=== PATIENT | male | born 1945 | race Caucasian/White ===

== ENCOUNTER 2017-02-22 15:09 | Emergency (ER) | payer OTHER ==
[2017-02-22 15:28] VITALS: BP 124/76; TEMP 99.4; BMI 31.3
[2017-02-22] MEDS ORDERED: SODIUM CHLORIDE 1,000 ML IV SCH (16:45)
[2017-02-22] MEDS ORDERED: CEFTRIAXONE 1 GM in DEXTROSE 5%-WATER - 100 ML IVPB SCH (16:45)
[2017-02-22] MEDS ORDERED: cefTRIAXone 1 GM/50 ML BAG (PRE-DOCKED) IVPB SCH (16:45)
[2017-02-22 16:46] LABS: URINE APPEARANCE CLEAR; URINE BILIRUBIN NEGATIVE (NEGATIVE); URINE BLOOD 1+ (NEGATIVE); URINE COLOR YELLOW; URINE GLUCOSE (UA) NEGATIVE (NEGATIVE); URINE KETONE TRACE (NEGATIVE); URINE LEUK ESTERASE NEGATIVE (NEGATIVE); URINE NITRITE NEGATIVE (NEGATIVE); URINE UROBILINOGEN NEGATIVE mg/dL (0.2-1.0)
[2017-02-22 16:49] LABS: BASOPHIL 0.4 % (0-2.0); EOSINOPHIL 0.2 % (0-4.5); MCH 30.1 pg (25.7-33.7); MCHC 33.5 g/dl (32.0-35.9); MEAN CELL VOLUME 89.8 fl (80-96); MEAN PLT VOLUME 8.3 fl (7.5-11.1); NEUTROPHILS 86.1 % (42.8-82.8); PLATELET COUNT 225 K/MM3 (134-434); RDW 13.9 % (11.9-15.9); WHITE BLOOD COUNT 10.7 K/mm3 (4.0-10.0)
--- NOTE | 2017-02-22 16:49 | CON.GI ---
Consult Consult Specialty:: gastroenterology - History of Present Illness History of Present Illness: 71 y/o male with PMH of HTN, prostatitis was dooing well until this morning when he developed watery diarrhea, non-bloody associated with delirium, abdominal pain and fever. He continious to be weak. There was no recent travel history and no recent antibiotic use. - Past Medical History [employer]: No: CVA Cardio/Vascular: Yes: HTN. No: CHF - Past Surgical History Past Surgical History: Yes: None - Alcohol/Substance Use Hx Alcohol Use: No - Smoking History Smoking history: Never smoked Have you smoked in the past 12 months: No Aproximately how many cigarettes per day: 0 Home Medications - Allergies Allergies/Adverse Reactions: Allergies Allergy/AdvReac Type Severity Reaction Status Date / Time No Known Allergies Allergy Verified 02/22/17 15:23 - Home Medications Home Medications: Ambulatory Orders Glyburide/Metformin HCl [Glyburide-Metformin 2.5-500 mg] 1 each PO BID 10/08/12 Quinapril HCl [Accupril] 10 mg PO DAILY 10/08/12 Simvastatin [Zocor] 20 mg PO HS 10/08/12 Ibuprofen [Motrin -] 800 mg PO TID #30 tablet 10/28/13 Review of Systems - Review of Systems Constitutional: reports: Fever Eyes: reports: Blind Spots HENT: reports: Difficult Swallowing Neck: reports: Decreased ROM Cardiovascular: reports: Chest Pain Gastrointestinal: reports: Diarrhea. denies: Abdominal Pain, Bloating, Constipation, Dysphagia, Melena, Nausea, Rectal Bleeding Physical Exam-GI Vital Signs: Vital Signs Temperature 99.4 F 02/22/17 15:23 Pulse Rate 118 H 02/22/17 15:23 Respiratory Rate 19 02/22/17 15:23 Blood Pressure 124/76 02/22/17 15:23 O2 Sat by Pulse Oximetry (%) 96 02/22/17 15:50 Constitutional: Yes: Well Nourished Eyes: Yes: Conjunctiva Clear HENT: Yes: Atraumatic Neck: Yes: Trachea Midline Cardiovascular: Yes: Regular Rate and Rhythm Respiratory: Yes: CTA Bilaterally ...Palpate: Yes: Soft. No: Firm/Rigid, Guarding, Hepatomegaly, Mass, Pulsatile Mass, Splenomegaly, Tenderness, Tenderness, Epigastium Problem List - Problems (1) Infectious diarrhea Assessment/Plan: R> IV ceftriaxone and IV flagyl IV hydration stool culture and sensitivity stool c diff Code(s): A09 - INFECTIOUS GASTROENTERITIS AND COLITIS, UNSPECIFIED
[2017-02-22] MEDS ORDERED: CEFTRIAXONE 50 ML ONE (16:51)
[2017-02-22] MEDS ORDERED: METRONIDAZOLE 500 MG PREMIXED 100 ML IVPB ONE (16:52)
[2017-02-22 17:05] LABS: URINE PROTEIN 2+ (NEGATIVE)
[2017-02-22 17:06] LABS: INR 0.99 (0.82-1.09); PROTHROMBIN TIME (PATIENT) 10.9 SEC (9.98-11.88)
[2017-02-22 17:09] LABS: ACTIVATED PTT 32.5 SECONDS (26.9-34.4)
[2017-02-22 17:12] LABS: VENOUS PH 7.41 (7.32-7.42)
[2017-02-22 17:13] LABS: VENOUS BLOOD GAS HCO3 22.6 meq/L (19-25)
[2017-02-22 17:16] LABS: ALBUMIN 4.1 g/dl (3.4-5.0); ANION GAP 9 (8-16); BILIRUBIN,TOTAL 0.7 mg/dL (0.2-1.0); CO2 23 mmol/L (21-32); CREATININE 0.9 mg/dL (0.7-1.3); GLUCOSE,RANDOM 172 mg/dL (74-106); SGOT/AST 16 U/L (15-37); SGPT/ALT 22 U/L (12-78); TOT PROT 7.8 g/dl (6.4-8.2)
[2017-02-22 17:18] LABS: ALK PHOS 79 U/L (45-117); TROPONIN I < 0.02 ng/ml (0.00-0.05)
[2017-02-22 17:26] LABS: URINE MUCUS MODERATE; URINE RBC 3 /hpf (0-3); URINE WBC <1 /hpf (3-5)
--- NOTE | 2017-02-22 17:26 | PDOC ---
History of Present Illness - General History Source: Patient Exam Limitations: No Limitations - History of Present Illness Initial Comments: 02/22/17 17:27 The patient is a 71-year-old male, with a significant past medical history of diabetes, HTN, hyperlipidemia, and enlarged prostate, who presents to the ED with chest pain, abdominal pain, subjective fever, productive cough (yellow sputum for a few days), body aches, and diarrhea. Pt woke up this morning at 5 am with abdominal pain. Soon after pt developed diarrhea. Since this morning patient has gone 3-4x. Pt has taken tylenol and pepto bismol to help alleviate his symptoms. Pt states that his chest pain radiates to his arms. He does report experiencing numbness in his arms as well. He reports headache. He denies any nausea or vomiting. He denies any recent travel or sick contacts. Social Hx: He denies tobacco, alcohol, or drug use. Allergies: None <Jacqueline Smallwood - Last Filed: 02/22/17 17:27> <Hernan Will - Last Filed: 02/23/17 10:23> - General Chief Complaint: Chest Pain Stated Complaint: FEVER, LETHARGIC Time Seen by Provider: 02/22/17 15:37 Past History <Jacqueline Smallwood - Last Filed: 02/22/17 17:27> - Past Medical History Anemia: No Asthma: No Cancer: No Cardiac Disorders: No CVA: No COPD: No CHF: No Dementia: No Diabetes: Yes GI Disorders: No Disorders: Yes (prostate hypertrophy) HTN: Yes Hypercholesterolemia: Yes Liver Disease: No Seizures: No Thyroid Disease: No - Surgical History Orthopedic Surgery: Yes (r thr(2000)) - Psycho/Social/Smoking Cessation Hx Suicidal Ideation: No Smoking Status: No Smoking History: Never smoked Have you smoked in the past 12 months: No Number of Cigarettes Smoked Daily: 0 Hx Alcohol Use: No Drug/Substance Use Hx: No Hx Substance Use Treatment: No <Hernan Will - Last Filed: 02/23/17 10:23> - Past Medical History Allergies/Adverse Reactions: Allergies Allergy/AdvReac Type Severity Reaction Status Date / Time No Known Allergies Allergy Verified 02/22/17 15:23 Home Medications: Ambulatory Orders Glyburide/Metformin HCl [Glyburide-Metformin 2.5-500 mg] 1 each PO BID 10/08/12 Simvastatin [Zocor] 20 mg PO HS 10/08/12 Insulin Lispro [Humalog] 0 unit SQ PRN PRN 02/22/17 Levocetirizine Dihydrochloride [Xyzal] 5 mg PO DAILY 02/22/17 Lubiprostone [Amitiza] 8 mcg PO DAILY 02/22/17 Pantoprazole Sodium [Protonix] 40 mg PO DAILY 02/22/17 Tamsulosin HCl [Flomax] 0.4 mg PO HS 02/22/17 Valsartan 80 mg PO DAILY 02/22/17 Review of Systems - Review of Systems Able to Perform ROS?: Yes Comments:: 02/22/17 17:27 GENERAL/CONSTITUTIONAL: +fever. No chills. No weakness. HEAD, EYES, EARS, NOSE AND THROAT: No change in vision. No ear pain or discharge. No sore throat. CARDIOVASCULAR: No chest pain or shortness of breath. RESPIRATORY: +cough No wheezing, or hemoptysis. SKIN: No rash GASTROINTESTINAL: +Abdominal pain, diarrhea. No nausea, vomiting, or constipation. GENITOURINARY: No dysuria, frequency, or change in urination. MUSCULOSKELETAL: No joint or muscle swelling or pain. No neck or back pain. NEUROLOGIC:+Headache. No vertigo, loss of consciousness, or change in strength/ sensation. ENDOCRINE: No increased thirst. No abnormal weight change. HEMATOLOGIC/LYMPHATIC: No anemia, easy bleeding, or history of blood clots. ALLERGIC/IMMUNOLOGIC: No hives or skin allergy. <Jacqueline Smallwood - Last Filed: 02/22/17 17:27> *Physical Exam - Vital Signs Last Vital Signs Temp Pulse Resp BP Pulse Ox 99.4 F 118 H 19 124/76 96 02/22/17 15:23 02/22/17 15:23 02/22/17 15:23 02/22/17 15:23 02/22/17 15:50 - Physical Exam Comments: 02/22/17 17:29 GENERAL: Awake, alert, and fully oriented, in no acute distress HEAD: No signs of trauma ENT: Auricles normal inspection, hearing grossly normal, nares patent, oropharynx clear EYES: PERRLA, EOMI, sclera anicteric, conjunctiva clear without exudates. Moist mucosa. NECK: Normal ROM, supple, no lymphadenopathy, JVD, or masses LUNGS: Breath sounds equal, clear to auscultation bilaterally. No wheezes, and no crackles HEART: Regular rate and rhythm, normal S1 and S2, no murmurs, rubs or gallops ABDOMEN: Soft, nontender. No guarding, no rebound. No masses. +Positive bowel sounds with slight distension. EXTREMITIES: Normal range of motion, no edema. No clubbing or cyanosis. No cords, erythema, or tenderness NEUROLOGICAL: Cranial nerves II through XII grossly intact. Normal speech. SKIN: Warm, Dry, normal turgor, no rashes or lesions noted <Jacqueline Smallwood - Last Filed: 02/22/17 17:27> - Vital Signs Last Vital Signs Temp Pulse Resp BP Pulse Ox 99.4 F 118 H 19 124/76 96 02/22/17 15:23 02/22/17 15:23 02/22/17 15:23 02/22/17 15:23 02/22/17 15:50 <Hernan Will - Last Filed: 02/23/17 10:23> ED Treatment Course - LABORATORY CBC & Chemistry Diagram: 02/22/17 16:43 02/22/17 16:43 - ADDITIONAL ORDERS Additional order review: Laboratory Results 02/22/17 02/22/17 02/22/17 16:43 16:43 16:43 INR 0.99 PTT (Actin FS) 32.5 VBG pH 7.41 POC VBG pCO2 36.4 L POC VBG pO2 60.0 H Mixed VBG HCO3 22.6 Urine Color Urine Appearance Urine pH Urine Protein Urine Glucose (UA) Urine Ketones Urine Blood Urine Nitrite Urine Bilirubin Urine Urobilinogen Ur Leukocyte Esterase Blood Type O POSITIVE 02/22/17 16:20 INR PTT (Actin FS) VBG pH POC VBG pCO2 POC VBG pO2 Mixed VBG HCO3 Urine Color Yellow Urine Appearance Clear Urine pH 5.0 Urine Protein 2+ H Urine Glucose (UA) Negative Urine Ketones Trace H Urine Blood 1+ H Urine Nitrite Negative Urine Bilirubin Negative Urine Urobilinogen Negative Ur Leukocyte Esterase Negative Blood Type 02/22/17 16:43 RBC 5.46 MCV 89.8 MCHC 33.5 RDW 13.9 MPV 8.3 Neutrophils % 86.1 H Lymphocytes % 5.9 L Monocytes % 7.4 Eosinophils % 0.2 Basophils % 0.4 <Jacqueline Smallwood - Last Filed: 02/22/17 17:27> - LABORATORY CBC & Chemistry Diagram: 02/22/17 16:43 02/22/17 16:43 - ADDITIONAL ORDERS Additional order review: Laboratory Results 02/22/17 02/22/17 02/22/17 16:43 16:43 16:43 INR 0.99 PTT (Actin FS) 32.5 VBG pH 7.41 POC VBG pCO2 36.4 L POC VBG pO2 60.0 H Mixed VBG HCO3 22.6 Urine Color Urine Appearance Urine pH Urine Protein Urine Glucose (UA) Urine Ketones Urine Blood Urine Nitrite Urine Bilirubin Urine Urobilinogen Ur Leukocyte Esterase Blood Type O POSITIVE 02/22/17 16:20 INR PTT (Actin FS) VBG pH POC VBG pCO2 POC VBG pO2 Mixed VBG HCO3 Urine Color Yellow Urine Appearance Clear Urine pH 5.0 Urine Protein 2+ H Urine Glucose (UA) Negative Urine Ketones Trace H Urine Blood 1+ H Urine Nitrite Negative Urine Bilirubin Negative Urine Urobilinogen Negative Ur Leukocyte Esterase Negative Blood Type 02/22/17 16:43 RBC 5.46 MCV 89.8 MCHC 33.5 RDW 13.9 MPV 8.3 Neutrophils % 86.1 H Lymphocytes % 5.9 L Monocytes % 7.4 Eosinophils % 0.2 Basophils % 0.4 - RADIOLOGY Radiology Studies Ordered: Category Date Time Status CHEST X-RAY PORTABLE* [RAD] Stat Radiology 02/22/17 15:53 Taken <Hernan Will - Last Filed: 02/23/17 10:23> *DC/Admit/Observation/Transfer - Attestations Scribe Attestion: 02/22/17 17:30 Documentation prepared by Jacqueline Smallwood, acting as medical chemist for Hernan Will MD. <Jacqueline Smallwood - Last Filed: 02/22/17 17:27> - Attestations Physician Attestion: 02/22/17 17:26 I, Dr. Hernan Will, attest that this document has been prepared under my direction and personally reviewed by me in its entirety. I further attest, that it accurately reflects all work, treatment, procedures and medical decision -making performed by me. <Hernan Will - Last Filed: 02/23/17 10:23> Diagnosis at time of Disposition: Ileus - Discharge Dispostion Disposition: HOME Condition at time of disposition: Stable - Referrals Referrals: Hang Mckenzie MD [Primary Care Provider] - - Patient Instructions Printed Discharge Instructions: DI for Ileus Additional Instructions: soft diet until you can tolerate more. Follow up with your doctor as soon as possible.
[2017-02-22] MEDS ORDERED: METRONIDAZOLE 500 MG PREMIXED 100 ML IVPB SCH (18:00)
[2017-02-22 18:05] VITALS: PULSE 87
[2017-02-22] MEDS ORDERED: SODIUM CHLORIDE 500 ML IV STA (18:36)
--- NOTE | 2017-02-22 22:47 | PDOC ---
*Physical Exam - Vital Signs Last Vital Signs Temp Pulse Resp BP Pulse Ox 99.4 F 87 16 124/76 98 02/22/17 15:23 02/22/17 18:04 02/22/17 18:04 02/22/17 15:23 02/22/17 18:04 <Felix Braxton - Last Filed: 02/22/17 22:47> - Vital Signs Last Vital Signs Temp Pulse Resp BP Pulse Ox 99.4 F 87 16 124/76 98 02/22/17 15:23 02/22/17 18:04 02/22/17 18:04 02/22/17 15:23 02/22/17 18:04 <Cummings,Andrys - Last Filed: 02/23/17 04:29> Heart Score/ECG Review #1 02/23/17 04:28 Vent. rate 112 bpm FL interval 164 ms QRS duration 78 ms Sinus tachycardia <Cummings,Andrys - Last Filed: 02/23/17 04:29> ED Treatment Course - LABORATORY CBC & Chemistry Diagram: 02/22/17 16:43 02/22/17 16:43 - ADDITIONAL ORDERS Additional order review: Laboratory Results 02/22/17 02/22/17 02/22/17 16:43 16:43 16:43 INR PTT (Actin FS) VBG pH POC VBG pCO2 POC VBG pO2 Mixed VBG HCO3 Sodium Potassium Chloride Carbon Dioxide Anion Gap BUN Creatinine Creat Clearance w eGFR Random Glucose Lactic Acid 1.5 Calcium Total Bilirubin AST ALT Alkaline Phosphatase Creatine Kinase CK-MB (CK-2) CK-MB (CK-2) Rel Index Cancelled Troponin I Total Protein Albumin Urine Color Urine Appearance Urine pH Ur Specific [place] Urine Protein Urine Glucose (UA) Urine Ketones Urine Blood Urine Nitrite Urine Bilirubin Urine Urobilinogen Ur Leukocyte Esterase Urine RBC Urine WBC Ur Epithelial Cells Urine Mucus Blood Type O POSITIVE Antibody Screen Negative 02/22/17 02/22/17 02/22/17 16:43 16:43 16:43 INR 0.99 PTT (Actin FS) 32.5 VBG pH 7.41 POC VBG pCO2 36.4 L POC VBG pO2 60.0 H Mixed VBG HCO3 22.6 Sodium 133 L Potassium 4.3 Chloride 101 Carbon Dioxide 23 D Anion Gap 9 BUN 18 Creatinine 0.9 D Creat Clearance w eGFR > 60 Random Glucose 172 H Lactic Acid Calcium 9.0 Total Bilirubin 0.7 AST 16 ALT 22 D Alkaline Phosphatase 79 Creatine Kinase 362 H CK-MB (CK-2) 1.940 CK-MB (CK-2) Rel Index Troponin I < 0.02 Total Protein 7.8 Albumin 4.1 Urine Color Urine Appearance Urine pH Ur Specific [place] Urine Protein Urine Glucose (UA) Urine Ketones Urine Blood Urine Nitrite Urine Bilirubin Urine Urobilinogen Ur Leukocyte Esterase Urine RBC Urine WBC Ur Epithelial Cells Urine Mucus Blood Type Antibody Screen 02/22/17 16:20 INR PTT (Actin FS) VBG pH POC VBG pCO2 POC VBG pO2 Mixed VBG HCO3 Sodium Potassium Chloride Carbon Dioxide Anion Gap BUN Creatinine Creat Clearance w eGFR Random Glucose Lactic Acid Calcium Total Bilirubin AST ALT Alkaline Phosphatase Creatine Kinase CK-MB (CK-2) CK-MB (CK-2) Rel Index Troponin I Total Protein Albumin Urine Color Yellow Urine Appearance Clear Urine pH 5.0 Ur Specific [place] >= 1.030 H Urine Protein 2+ H Urine Glucose (UA) Negative Urine Ketones Trace H Urine Blood 1+ H Urine Nitrite Negative Urine Bilirubin Negative Urine Urobilinogen Negative Ur Leukocyte Esterase Negative Urine RBC 3 Urine WBC <1 Ur Epithelial Cells Rare Urine Mucus Moderate Blood Type Antibody Screen 02/22/17 16:43 RBC 5.46 MCV 89.8 MCHC 33.5 RDW 13.9 MPV 8.3 Neutrophils % 86.1 H Lymphocytes % 5.9 L Monocytes % 7.4 Eosinophils % 0.2 Basophils % 0.4 - RADIOLOGY Radiology Studies Ordered: Category Date Time Status ABDOMEN & PELVIS CT W/O CONTR [CT] Stat CT Scan 02/22/17 20:50 Completed - Medications Given in the ED: ED Medications Discontinued Medications Generic Name Dose Route Start Last Admin Trade Name Freq PRN Reason Stop Dose Admin Sodium Chloride 500 mls @ 500 mls/hr 02/22/17 18:36 02/22/17 19:27 Normal Saline - IV 02/22/17 19:35 500 mls/hr ASDIR STA Administration <Felix Braxton - Last Filed: 02/22/17 22:47> - LABORATORY CBC & Chemistry Diagram: 02/22/17 16:43 02/22/17 16:43 - ADDITIONAL ORDERS Additional order review: Laboratory Results 02/22/17 02/22/17 02/22/17 16:43 16:43 16:43 INR PTT (Actin FS) VBG pH POC VBG pCO2 POC VBG pO2 Mixed VBG HCO3 Sodium Potassium Chloride Carbon Dioxide Anion Gap BUN Creatinine Creat Clearance w eGFR Random Glucose Lactic Acid 1.5 Calcium Total Bilirubin AST ALT Alkaline Phosphatase Creatine Kinase CK-MB (CK-2) CK-MB (CK-2) Rel Index Cancelled Troponin I Total Protein Albumin Urine Color Urine Appearance Urine pH Ur Specific [place] Urine Protein Urine Glucose (UA) Urine Ketones Urine Blood Urine Nitrite Urine Bilirubin Urine Urobilinogen Ur Leukocyte Esterase Urine RBC Urine WBC Ur Epithelial Cells Urine Mucus Blood Type O POSITIVE Antibody Screen Negative 02/22/17 02/22/17 02/22/17 16:43 16:43 16:43 INR 0.99 PTT (Actin FS) 32.5 VBG pH 7.41 POC VBG pCO2 36.4 L POC VBG pO2 60.0 H Mixed VBG HCO3 22.6 Sodium 133 L Potassium 4.3 Chloride 101 Carbon Dioxide 23 D Anion Gap 9 BUN 18 Creatinine 0.9 D Creat Clearance w eGFR > 60 Random Glucose 172 H Lactic Acid Calcium 9.0 Total Bilirubin 0.7 AST 16 ALT 22 D Alkaline Phosphatase 79 Creatine Kinase 362 H CK-MB (CK-2) 1.940 CK-MB (CK-2) Rel Index Troponin I < 0.02 Total Protein 7.8 Albumin 4.1 Urine Color Urine Appearance Urine pH Ur Specific [place] Urine Protein Urine Glucose (UA) Urine Ketones Urine Blood Urine Nitrite Urine Bilirubin Urine Urobilinogen Ur Leukocyte Esterase Urine RBC Urine WBC Ur Epithelial Cells Urine Mucus Blood Type Antibody Screen 02/22/17 16:20 INR PTT (Actin FS) VBG pH POC VBG pCO2 POC VBG pO2 Mixed VBG HCO3 Sodium Potassium Chloride Carbon Dioxide Anion Gap BUN Creatinine Creat Clearance w eGFR Random Glucose Lactic Acid Calcium Total Bilirubin AST ALT Alkaline Phosphatase Creatine Kinase CK-MB (CK-2) CK-MB (CK-2) Rel Index Troponin I Total Protein Albumin Urine Color Yellow Urine Appearance Clear Urine pH 5.0 Ur Specific [place] >= 1.030 H Urine Protein 2+ H Urine Glucose (UA) Negative Urine Ketones Trace H Urine Blood 1+ H Urine Nitrite Negative Urine Bilirubin Negative Urine Urobilinogen Negative Ur Leukocyte Esterase Negative Urine RBC 3 Urine WBC <1 Ur Epithelial Cells Rare Urine Mucus Moderate Blood Type Antibody Screen 02/22/17 16:43 RBC 5.46 MCV 89.8 MCHC 33.5 RDW 13.9 MPV 8.3 Neutrophils % 86.1 H Lymphocytes % 5.9 L Monocytes % 7.4 Eosinophils % 0.2 Basophils % 0.4 - Medications Given in the ED: ED Medications Discontinued Medications Generic Name Dose Route Start Last Admin Trade Name Abdullahi PRN Reason Stop Dose Admin Ceftriaxone Sodium 1 gm 02/22/17 16:45 02/22/17 16:59 Rocephin 1gm Ivpb (Pre-Docked) IVPB 1 gm DAILY MARIA LUZ Administration Sodium Chloride 1,000 mls @ 125 mls/hr 02/22/17 16:45 02/22/17 17:00 Normal Saline - IV 02/25/17 00:44 125 mls/hr ASDIR MARIA LUZ Administration Metronidazole 100 mls @ 100 mls/hr 02/22/17 18:00 02/22/17 18:03 Flagyl 500mg Premixed Ivpb - IVPB 100 mls/hr Q8H-IV MARIA LUZ Administration Sodium Chloride 500 mls @ 500 mls/hr 02/22/17 18:36 02/22/17 19:27 Normal Saline - IV 02/22/17 19:35 500 mls/hr ASDIR STA Administration <Diallo Cummings - Last Filed: 02/23/17 04:29> Medical Decision Making - Medical Decision Making 02/22/17 22:[address] scan show ileus, with no obstruction. pt will be discharged. Daughter advised for brat diet until pt can tolerate more. <Felix Braxton - Last Filed: 02/22/17 22:47> *DC/Admit/Observation/Transfer - Discharge Dispostion Admit: No <Felix Braxton - Last Filed: 02/22/17 22:47> <Diallo Cummings - Last Filed: 02/23/17 04:29> Diagnosis at time of Disposition: Ileus - Discharge Dispostion Disposition: HOME Condition at time of disposition: Stable - Referrals Referrals: Hang Mckenzie MD [Primary Care Provider] - - Patient Instructions Printed Discharge Instructions: DI for Ileus Additional Instructions: soft diet until you can tolerate more. Follow up with your doctor as soon as possible. - Post Discharge Activity
--- NOTE | 2017-02-26 09:57 | EKG ---
Test Reason : Blood Pressure : / mmHG Vent. Rate : 112 BPM Atrial Rate : 112 BPM P-R Int : 164 ms QRS Dur : 078 ms QT Int : 310 ms P-R-T Axes : 053 012 046 degrees QTc Int : 423 ms SINUS TACHYCARDIA OTHERWISE NORMAL ECG WHEN COMPARED WITH ECG OF 03-SEP-2010 17:35, NO SIGNIFICANT CHANGE WAS FOUND Confirmed by DAISHA BONILLA MD ([id number]) on 02/26/2017 9:57:37 AM Referred By: Confirmed By:DAISHA BONILLA MD
== END 2017-02-22 23:21 | disposition home or self-care (01) ==
LOC: JER 15:09
PROC: 3E0337Z Introduction of Electrolytic and Water Balance Substance into Peripheral Vein, Percutaneous Approach (ICD-10-PCS; principal; 2017-02-22)
PROC: 3E03329 Introduction of Other Anti-infective into Peripheral Vein, Percutaneous Approach (ICD-10-PCS; 2017-02-22)
DX: A09 Infectious gastroenteritis and colitis, unspecified (principal); E11.9 Type 2 diabetes mellitus without complications; Z79.84 Long term (current) use of oral hypoglycemic drugs; E78.5 Hyperlipidemia, unspecified; I10 Essential (primary) hypertension
CPT/HCPCS: 36415; 71010-TC; 74176-TC; 80053; 81003; 81015; 82550; 82553; 82803; 83605; 84484; 85025; 85610; 85730; 86850; 86900; 86901; 87040; 87086; 93005; 93010; 99285-25

== ENCOUNTER 2017-05-20 17:59 | Emergency (ER) | payer OTHER ==
[2017-05-20 18:05] VITALS: BP 133/79; PULSE 83; TEMP 98; BMI 30.7
--- NOTE | 2017-05-20 19:33 | PDOC ---
History of Present Illness - General History Source: Patient Exam Limitations: No Limitations - History of Present Illness Initial Comments: 05/20/17 20:06 The patient is a 72-year-old male, with a significant past medical history of diabetes, HTN, hyperlipidemia, and enlarged prostate, who presents to the ED with worsening abdominal pain. Patient states the abdominal pain began 4-5 days ago. He describes the pain as radiating to the back and shoulders. Patient describes the pain as 6/10 in severity. Patient states he had constipation 3 days ago. He was given a laxative and gas- x by his PCP and has been having normal bowel movements since but with no alleviation of his abdominal pain. Patient complains of headache secondary to the abdominal pain but denies fever, chills, nausea, vomiting, diarrhea. Social Hx: He denies tobacco, alcohol, or drug use. Allergies: None GI: Dr. Russell <Percy Danielson - Last Filed: 05/20/17 20:06> <Noy Keane - Last Filed: 05/21/17 01:29> - General Chief Complaint: Pain Stated Complaint: STOMACH PAIN Time Seen by Provider: 05/20/17 19:03 Past History <Percy Danielson - Last Filed: 05/20/17 20:06> - Past Medical History Anemia: No Asthma: No Cancer: No Cardiac Disorders: No CVA: No COPD: No CHF: No Dementia: No Diabetes: Yes GI Disorders: No Disorders: Yes (prostate hypertrophy) HTN: Yes Hypercholesterolemia: Yes Liver Disease: No Seizures: No Thyroid Disease: No - Surgical History Orthopedic Surgery: Yes (r thr(2000)) - Suicide/Smoking/Psychosocial Hx Smoking Status: No Smoking History: Never smoked Have you smoked in the past 12 months: No Number of Cigarettes Smoked Daily: 0 Hx Alcohol Use: No Drug/Substance Use Hx: No Hx Substance Use Treatment: No <Noy Keane - Last Filed: 05/21/17 01:29> - Past Medical History Allergies/Adverse Reactions: Allergies Allergy/AdvReac Type Severity Reaction Status Date / Time No Known Allergies Allergy Verified 05/20/17 18:05 Home Medications: Ambulatory Orders Glyburide/Metformin HCl [Glyburide-Metformin 2.5-500 mg] 1 each PO BID 10/08/12 Simvastatin [Zocor] 20 mg PO HS 10/08/12 Insulin Lispro [Humalog] 0 unit SQ PRN PRN 02/22/17 Levocetirizine Dihydrochloride [Xyzal] 5 mg PO DAILY 02/22/17 Lubiprostone [Amitiza] 8 mcg PO DAILY 02/22/17 Tamsulosin HCl [Flomax] 0.4 mg PO HS 02/22/17 Valsartan 80 mg PO DAILY 02/22/17 Insulin Degludec [Tresiba Flextouch U-100] 20 unit SQ DAILY PRN 05/20/17 Review of Systems - Review of Systems Able to Perform ROS?: Yes Comments:: 05/20/17 20:06 GENERAL/CONSTITUTIONAL: No fever or chills. No weakness. HEAD, EYES, EARS, NOSE AND THROAT: No change in vision. No ear pain or discharge. No sore throat. CARDIOVASCULAR: No chest pain or shortness of breath. RESPIRATORY: No cough, wheezing, or hemoptysis. GASTROINTESTINAL: + constipation. No nausea, vomiting, diarrhea. GENITOURINARY: No dysuria, frequency, or change in urination. MUSCULOSKELETAL: No joint or muscle swelling or pain. No neck or back pain. SKIN: No rash NEUROLOGIC: + headache. No vertigo, loss of consciousness, or change in strength /sensation. ENDOCRINE: No increased thirst. No abnormal weight change. HEMATOLOGIC/LYMPHATIC: No anemia, easy bleeding, or history of blood clots. ALLERGIC/IMMUNOLOGIC: No hives or skin allergy. <Percy Danielson - Last Filed: 05/20/17 20:06> *Physical Exam - Vital Signs Last Vital Signs Temp Pulse Resp BP Pulse Ox 98.0 F 83 18 133/79 97 05/20/17 18:01 05/20/17 18:01 05/20/17 18:01 05/20/17 18:01 05/20/17 18:01 - Physical Exam Comments: 05/20/17 20:07 GENERAL: Awake, alert, and fully oriented, in no acute distress HEAD: No signs of trauma EYES: PERRLA, EOMI, sclera anicteric, conjunctiva clear ENT: Auricles normal inspection, hearing grossly normal, nares patent, oropharynx clear without exudates. Moist mucosa NECK: Normal ROM, supple, no lymphadenopathy, JVD, or masses LUNGS: Breath sounds equal, clear to auscultation bilaterally. No wheezes, and no crackles HEART: Regular rate and rhythm, normal S1 and S2, no murmurs, rubs or gallops BACK: Minimal right flank tenderness. ABDOMEN: Left lower quadrant tenderness. A lot of bowel sounds. No guarding, no rebound. No masses EXTREMITIES: Normal range of motion, no edema. No clubbing or cyanosis. No cords, erythema, or tenderness NEUROLOGICAL: Cranial nerves II through XII grossly intact. Normal speech, normal gait SKIN: Warm, Dry, normal turgor, no rashes or lesions noted. <Percy Danielson - Last Filed: 05/20/17 20:06> - Vital Signs Last Vital Signs Temp Pulse Resp BP Pulse Ox 98.0 F 83 18 133/79 97 05/20/17 18:01 05/20/17 18:01 05/20/17 18:01 05/20/17 18:01 05/20/17 18:01 <Noy Keane - Last Filed: 05/21/17 01:29> ED Treatment Course - LABORATORY CBC & Chemistry Diagram: 05/20/17 20:24 05/20/17 20:24 <Noy Keane - Last Filed: 05/21/17 01:29> Medical Decision Making - Medical Decision Making 05/20/17 20:32 Pt comes with chest pain since yesterday and abd pain. Daughter gave him laxative thinking that it could be his gas and constipation. However despite BMs pt still has some pain in the LLQ. He also has slight R. flank pain on exam. He is afebrile and he ate a tortilla some other food around 5 PM today. He has no N/V/D no chills. Pt has DM and HTN and we will r/o cardiac cause of pain. Pt will also have basic labs. We may do a CT abd pelvis to r/o colitis. 05/21/17 01:28 Patient Name: CHANTELLE NUNEZ THIS IS A PRELIMINARY REPORT FROM [facility] DATE OF SERVICE: 2017-05-21 00:36:04 IMAGES: 416 EXAM: CT ABDOMEN AND PELVIS WITHOUT CONTRAST No nephrolithiasis or obstructive uropathy. No visible bladder calculi, but right pelvis evaluation limited by streak artifact from right hip arthroplasty. Left renal cyst. Unremarkable pancreas and gallbladder. No bowel obstruction, ileus, colitis, diverticulitis, free fluid or free air. Normal appendix. Steatosis liver. Small umbilical hernia containing fat. <Noy Keane - Last Filed: 05/21/17 01:29> *DC/Admit/Observation/Transfer - Attestations Scribe Attestion: 05/20/17 20:10 Documentation prepared by Percy Danielson, acting as medical claims representative for Noy Keane MD. <Percy Danielson - Last Filed: 05/20/17 20:06> - Discharge Dispostion Admit: No <Noy Keane - Last Filed: 05/21/17 01:29> Diagnosis at time of Disposition: Epigastric hernia - Discharge Dispostion Disposition: HOME Condition at time of disposition: Stable - Referrals Referrals: Hang Mckenzie MD [Primary Care Provider] - - Patient Instructions Printed Discharge Instructions: DI for Abdominal Pain-Adult - Post Discharge Activity Forms/Work/School Notes: Back to Work
[2017-05-20 20:35] LABS: BASOPHIL 0.4 % (0-2.0); EOSINOPHIL 3.2 % (0-4.5); MCH 30.1 pg (25.7-33.7); MCHC 34.2 g/dl (32.0-35.9); MEAN CELL VOLUME 87.9 fl (80-96); MEAN PLT VOLUME 7.7 fl (7.5-11.1); NEUTROPHILS 40.4 % (42.8-82.8); PLATELET COUNT 218 K/MM3 (134-434); WHITE BLOOD COUNT 5.7 K/mm3 (4.0-10.0)
[2017-05-20 20:55] LABS: CPK 256 IU/L (39-308)
[2017-05-20 20:56] LABS: ALBUMIN 3.6 g/dl (3.4-5.0); AMYLASE 65 U/L (25-115); ANION GAP 7 (8-16); BILIRUBIN,TOTAL 0.3 mg/dL (0.2-1.0); CALCIUM 8.8 mg/dL (8.5-10.1); CO2 26 mmol/L (21-32); CREATININE 0.7 mg/dL (0.7-1.3); GLUCOSE,RANDOM 190 mg/dL (74-106); SGOT/AST 10 U/L (15-37); SGPT/ALT 24 U/L (12-78); TOT PROT 7.2 g/dl (6.4-8.2)
[2017-05-20 20:57] LABS: ALK PHOS 74 U/L (45-117); TROPONIN I < 0.02 ng/ml (0.00-0.05)
[2017-05-20] MEDS ORDERED: ACETAMINOPHEN 1000 MG/100 ML VIAL (NON FORMULARY) IVPB ONE (20:59)
[2017-05-20] MEDS ORDERED: ACETAMINOPHEN INJECTION 100 ML IVPB ONE (21:13)
[2017-05-20 21:24] LABS: URINE APPEARANCE CLEAR; URINE BILIRUBIN NEGATIVE (NEGATIVE); URINE BLOOD NEGATIVE (NEGATIVE); URINE COLOR LTYELLOW; URINE GLUCOSE (UA) 2+ (NEGATIVE); URINE KETONE NEGATIVE (NEGATIVE); URINE NITRITE NEGATIVE (NEGATIVE); URINE PROTEIN NEGATIVE (NEGATIVE); URINE UROBILINOGEN NEGATIVE mg/dL (0.2-1.0)
[2017-05-20] MEDS ORDERED: SODIUM CHLORIDE 0.9% 1000 ML INFUS.BAG IV ONE (21:44)
[2017-05-20 22:30] LABS: URINE LEUK ESTERASE Negative (NEGATIVE)
[2017-05-20] MEDS ORDERED: morphine CARPU-JECT 2 MG/1 ML DISP.SYRIN IVPUSH ONE (23:40)
[2017-05-20] MEDS ORDERED: morphine CARPU-JECT 2 MG/1 ML DISP.SYRIN ONE (23:59)
[2017-05-21 01:22] LABS: CPK 277 IU/L (39-308); TROPONIN I < 0.02 ng/ml (0.00-0.05)
--- NOTE | 2017-05-21 10:07 | EKG ---
Test Reason : Blood Pressure : / mmHG Vent. Rate : 059 BPM Atrial Rate : 059 BPM P-R Int : 188 ms QRS Dur : 090 ms QT Int : 400 ms P-R-T Axes : 051 022 036 degrees QTc Int : 396 ms SINUS BRADYCARDIA OTHERWISE NORMAL ECG WHEN COMPARED WITH ECG OF 22-FEB-2017 15:34, VENT. RATE HAS DECREASED BY 53 BPM Confirmed by DAISHA BONILLA MD ([id number]) on 05/21/2017 10:07:18 AM Referred By: Confirmed By:DAISHA BONILLA MD
== END 2017-05-21 01:47 | disposition home or self-care (01) ==
LOC: JER 17:59
PROC: 3E033NZ Introduction of Analgesics, Hypnotics, Sedatives into Peripheral Vein, Percutaneous Approach (ICD-10-PCS; principal; 2017-05-20)
DX: K43.9 Ventral hernia without obstruction or gangrene (principal); I10 Essential (primary) hypertension; E11.9 Type 2 diabetes mellitus without complications; Z79.4 Long term (current) use of insulin; E78.5 Hyperlipidemia, unspecified; N40.0 Benign prostatic hyperplasia without lower urinary tract symptoms; Z96.641 Presence of right artificial hip joint
CPT/HCPCS: 36415; 71020-TC; 74176-TC; 80053; 81003; 82150; 82550; 82553; 83690; 84484; 85025; 93005; 93010; 96374; 96375; 99284-25

== ENCOUNTER 2018-08-17 10:50 | Inpatient (IN) | payer OTHER ==
--- NOTE | 2018-08-17 11:21 | PDOC ---
History of Present Illness - General Chief Complaint: Respiratory Stated Complaint: COUGH Time Seen by Provider: 08/17/18 10:54 History Source: Patient Exam Limitations: No Limitations - History of Present Illness Initial Comments: 08/17/18 11:15 73 yo male h/o DM on insulin, HTN here with h c/o cough fever myaglia for several days. pt states he was sick one week ago then started to feel better until yesterday. started having bad cough and body aches. denies dysuria. but has bilat flank pain. no abd pain no n/v. no rash. did see his primary one week ago who tested for flu, but pt unsure of results. cough productive yellow phlegm , no travel. no known sick contacts. Past History - Past Medical History Allergies/Adverse Reactions: Allergies Allergy/AdvReac Type Severity Reaction Status Date / Time IV CONTRAST DYE Allergy Uncoded 08/17/18 12:41 Home Medications: Ambulatory Orders Simvastatin [Zocor] 20 mg PO HS 10/08/12 Insulin Lispro [Humalog] 0 unit SQ PRN PRN 02/22/17 Tamsulosin HCl [Flomax] 0.4 mg PO HS 02/22/17 Finasteride 5 mg PO DAILY 08/17/18 Glipizide/Metformin HCl [Glipizide-Metformin 5-500 mg] 1 each PO BID 08/17/18 Losartan Potassium 50 mg PO DAILY 08/17/18 Anemia: No Asthma: No Cancer: No Cardiac Disorders: No CVA: No COPD: No CHF: No Dementia: No Diabetes: Yes GI Disorders: No Disorders: Yes (prostate hypertrophy) HTN: Yes Hypercholesterolemia: Yes Liver Disease: No Seizures: No Thyroid Disease: No - Surgical History Orthopedic Surgery: Yes (r thr(2000)) - Suicide/Smoking/Psychosocial Hx Smoking Status: No Smoking History: Never smoked Have you smoked in the past 12 months: No Number of Cigarettes Smoked Daily: 0 Information on smoking cessation initiated: No Hx Alcohol Use: No Drug/Substance Use Hx: No Hx Substance Use Treatment: No Review of Systems - Review of Systems Constitutional: Yes: Chills, Fever HEENTM: No: Eye Pain, Blurred Vision Respiratory: Yes: Cough. No: Shortness of Breath, Wheezing Cardiac (ROS): No: Chest Pain ABD/GI: No: Nausea, Vomiting : Yes: Flank Pain. No: Burning, Dysuria Integumentary: No: Bruising, Rash Neurological: No: Headache Endocrine: Yes: Other (diabetic) All Other Systems: Reviewed and Negative *Physical Exam - Vital Signs Last Vital Signs Temp Pulse Resp BP Pulse Ox 97.8 F 117 H 20 106/69 97 08/17/18 10:50 08/17/18 10:50 08/17/18 10:50 08/17/18 10:50 08/17/18 10:50 - Physical Exam Comments: 08/17/18 11:17 awake alert lungs clear bilaterally heart reg tachycardia. no mrg abd soft nt nd. ext wwp no edema. no calf tenderness. no meningmus, neuro alert oriented x 3. Moderate Sedation - Procedure Monitoring Vital Signs: Procedure Monitoring Vital Signs Temperature 97.8 F 08/17/18 10:50 Pulse Rate 117 H 08/17/18 10:50 Respiratory Rate 20 08/17/18 10:50 Blood Pressure 106/69 08/17/18 10:50 O2 Sat by Pulse Oximetry (%) 97 08/17/18 10:50 ED Treatment Course - LABORATORY CBC & Chemistry Diagram: 08/17/18 11:27 08/17/18 11:27 - RADIOLOGY Radiology Studies Ordered: Category Date Time Status CHEST PA & LAT [RAD] Stat Radiology 08/17/18 11:11 Ordered Medical Decision Making - Medical Decision Making 08/17/18 11:18 differential pna, influenza, uti pyelo. plan labs ivf, tylenol cxr ua. reassess. 08/17/18 12:36 pt cxr with lung mass. WBC 22, left shift. will cover for abx, sepsis. elevated wbc and heart rate. will obtain ct eval possible mass vs. infection. given vanco and zosyn, rectal temp 98. 08/17/18 13:52 ct chest with appearance of pna not mass, pt d/w carlos gordillo will admit to [facility] for pna. 08/17/18 13:[address] greer, called oncall physician awaitin call back. 08/17/18 14:04 d/w dr greer does not admit to [facility] told to admit to hospilist *DC/Admit/Observation/Transfer Diagnosis at time of Disposition: Lung mass, Pneumonia, Hyperglycemia - Discharge Dispostion Condition at time of disposition: Stable Decision to Admit order: Yes - Referrals Referrals: Hang Mckenzie MD [Primary Care Provider] - - Patient Instructions - Post Discharge Activity
[2018-08-17 11:42] LABS: BASO % 0.2 % (0-2.0); HEMATOCRIT 46.2 % (35.4-49); HEMOGLOBIN 15.8 GM/dl (11.7-16.9); LYMPH % 5.6 % (8-40); MCHC 34.2 g/dl (32.0-35.9); MEAN CELL VOLUME 90.7 fl (80-96); MEAN PLT VOLUME 7.9 fl (7.5-11.1); MONO % 6.4 % (3.8-10.2); NEUT % 87.8 % (42.8-82.8); PLATELET COUNT 237 K/MM3 (134-434); RDW 12.7 % (11.9-15.9); WHITE BLOOD COUNT 22.6 K/mm3 (4.0-10.8)
[2018-08-17 11:53] LABS: ALBUMIN 3.6 g/dl (3.5-5.0); ALK PHOS 68 U/L (32-92); ANION GAP 8 MMOL/L (8-16); BILIRUBIN,TOTAL 1.2 mg/dl (0.2-1.0); BLOOD UREA NITROGEN 25 mg/dl (7-18); CALCIUM 8.6 mg/dl (8.4-10.2); CHLORIDE 100 mmol/L (98-107); CO2 22 mmol/L (22-28); CREATININE 1.3 mg/dl (0.6-1.3); POTASSIUM 4.5 mmol/L (3.5-5.1); SGOT/AST 23 U/L (10-42); SGPT/ALT 20 U/L (10-40); SODIUM 130 mmol/L (136-145); TOT PROT 7.3 g/dl (6.4-8.3)
[2018-08-17 12:02] LABS: GLUCOSE,RANDOM 316 mg/dl (74-106)
[2018-08-17] MEDS ORDERED: SODIUM CHLORIDE 0.9% 1000 ML INFUS.BAG IV ONE (12:14)
[2018-08-17] MEDS ORDERED: VANCOMYCIN 1 GRAM (PRE-DOCKED) 1,000 MG/250 ML BAG IVPB ONE (12:17)
[2018-08-17 12:18] LABS: URINE APPEARANCE Clear; URINE BILIRUBIN 1+ (NEGATIVE); URINE COLOR Yellow; URINE GLUCOSE (UA) Trace (NEGATIVE); URINE KETONE 1+ (NEGATIVE); URINE LEUK ESTERASE TRACE (NEGATIVE); URINE NITRITE Negative (NEGATIVE); URINE PROTEIN 3+ (NEGATIVE); URINE UROBILINOGEN 0.2 (0.2-1.0)
[2018-08-17] MEDS ORDERED: PIPERACILLIN/TAZOB 4.5 GM 4.5 GM in DEXTROSE 5%-WATER 100 ML IVPB ONE (12:18)
[2018-08-17] MEDS ORDERED: PIPERACILLIN/TAZOBACTAM 4.5 GM VIAL IVPB ONE (12:22)
[2018-08-17] MEDS ORDERED: VANCOMYCIN 1,000 MG VIAL (RESTRICTED TO ID ONLY) ONE (12:22)
[2018-08-17 12:36] LABS: EPI CELLS 1+ /HPF; URINE BACTERIA FEW /hpf (NEGATIVE); URINE RBC 0-3 /hpf (0-3); URINE WBC 0-3 (0-2)
[2018-08-17] MEDS ORDERED: HEMOQUE TEST 1 EACH EACH ONE (13:17)
[2018-08-17] MEDS ORDERED: INSULIN REGULAR HUMAN 100 UNITS/ML *VIAL IVPUSH ONE (13:27)
[2018-08-17] MEDS ORDERED: INSULIN (NOVOLOG) ASPART 100 UNITS/ML 10ML VIAL SQ ONE (13:27)
[2018-08-17 15:56] VITALS: BMI 29.6
--- NOTE | 2018-08-17 17:04 | PN ---
Progress Note (short form) - Note Progress Note: ID CONSULT DICTATED ANUPAM PNEUMONIA COMMUNITY ACQ V. ATYPICAL ? UNDERLYING NEOPLASM RUL ATELECTASIS V. INFILTRATE OBTAIN SPUTUM C/S LEGIONELLA/ PNEUMOCOCCAL AG QUANTIFERON EMPIRIC ZITHROMAX/ CEFTRIAXONE F/U CT TO DOCUMENT RESOLUTION DECLINES HIV TEST
[2018-08-17] MEDS ORDERED: AZITHROMYCIN IVPB 500 MG/250 ML D5W PRE-DOCKED IVPB SCH (17:15)
[2018-08-17] MEDS ORDERED: AZITHROMYCIN IVPB 500 MG in DEXTROSE 5%-WATER - 250 ML IVPB SCH (17:15)
--- NOTE | 2018-08-17 17:15 | HP ---
CHIEF COMPLAINT: Cough, fever PCP: Dr. Hang Mckenzie HISTORY OF PRESENT ILLNESS: 73 year-old male with a PMH significant for HTN, HLD, Type II IDDM, BPH, and prostatis. Presented with complaint of cough, fever, and myaglia x several days. Patient was sick one week ago then started to feel better until yesterday when he started having a bad cough and body aches. Patient denies dysuria but complains of bilateral flank pain. He saw his PCP one week ago and was tested for flu but unsure of results. His cough is productive of yellow sputum. ER course was notable for: (1) WBC 22.6k (2) Na 130, lactic acid 2.4 (3) CXR: new left-sided mass in left midlung 5.5 x 5.8cm (4) CT chest: large left upper lobe infiltrate suspicious for acute pneumonia; smaller area of consolidation RUL; no evidence of pulmonary mass Recent Travel: No PAST MEDICAL HISTORY: Hypertension Hyperlipidemia Type II IDDM BPH Prostatitis PAST SURGICAL HISTORY: Right hip replacement 2000 Social History: Smoking: Alcohol: Drugs: Family History: Allergies Iodinated Contrast- Oral and IV Dye Allergy (Verified 08/17/18 16:04) IV CONTRAST DYE Allergy (Uncoded 08/17/18 12:41) HOME MEDICATIONS: Home Medications Medication Instructions Recorded Simvastatin [Zocor] 20 mg PO HS 10/08/12 Insulin Lispro [Humalog] 0 unit SQ PRN PRN 02/22/17 Tamsulosin HCl [Flomax] 0.4 mg PO HS 02/22/17 Finasteride 5 mg PO DAILY 08/17/18 Glipizide/Metformin HCl 1 each PO BID 08/17/18 [Glipizide-Metformin 5-500 mg] Losartan Potassium 50 mg PO DAILY 08/17/18 REVIEW OF SYSTEMS CONSTITUTIONAL: +fever, myalgia Absent: fever, chills, diaphoresis, generalized weakness, malaise, loss of appetite, weight change HEENT: Absent: rhinorrhea, nasal congestion, throat pain, throat swelling, difficulty swallowing, mouth swelling, ear pain, eye pain, visual changes CARDIOVASCULAR: Absent: chest pain, syncope, palpitations, irregular heart rate, lightheadedness , peripheral edema RESPIRATORY: +cough Absent: cough, shortness of breath, dyspnea with exertion, orthopnea, wheezing, stridor, hemoptysis GASTROINTESTINAL: Absent: abdominal pain, abdominal distension, nausea, vomiting, diarrhea, constipation, melena, hematochezia GENITOURINARY: Absent: dysuria, frequency, urgency, hesitancy, hematuria, flank pain, genital pain MUSCULOSKELETAL: Absent: myalgia, arthralgia, joint swelling, back pain, neck pain SKIN: Absent: rash, itching, pallor HEMATOLOGIC/IMMUNOLOGIC: Absent: easy bleeding, easy bruising, lymphadenopathy, frequent infections ENDOCRINE: Absent: unexplained weight gain, unexplained weight loss, heat intolerance, cold intolerance NEUROLOGIC: Absent: headache, focal weakness or paresthesias, dizziness, unsteady gait, seizure, mental status changes, bladder or bowel incontinence PSYCHIATRIC: Absent: anxiety, depression, suicidal or homicidal ideation, hallucinations. PHYSICAL EXAMINATION Vital Signs - 24 hr 08/17/18 08/17/18 08/17/18 10:50 11:00 12:37 Temperature 97.8 F 98 F 98.0 F Pulse Rate 117 H 86 Pulse Rate [ Left Apical] Respiratory 20 16 Rate Blood Pressure 106/69 112/60 Blood Pressure [Left Arm] O2 Sat by Pulse 97 97 Oximetry (%) 08/17/18 14:22 Temperature 98.1 F Pulse Rate Pulse Rate [ 87 Left Apical] Respiratory 18 Rate Blood Pressure Blood Pressure 120/70 [Left Arm] O2 Sat by Pulse 97 Oximetry (%) GENERAL: Awake, alert, and fully oriented, in no acute distress. HEAD: Normal with no signs of trauma. EYES: Pupils equal, round and reactive to light, extraocular movements intact, sclera anicteric, conjunctiva clear. No lid lag. EARS, NOSE, THROAT: Ears normal, nares patent, oropharynx clear without exudates. Moist mucous membranes. NECK: Normal range of motion, supple without lymphadenopathy, JVD, or masses. LUNGS: Breath sounds equal, clear to auscultation bilaterally. No wheezes, and no crackles. No accessory muscle use. HEART: Regular rate and rhythm, normal S1 and S2 without murmur, rub or gallop. ABDOMEN: Soft, nontender, not distended, normoactive bowel sounds, no guarding, no rebound, no masses. No hepatomegaly or splenomegaly. MUSCULOSKELETAL: Normal range of motion at all joints. No bony deformities or tenderness. No CVA tenderness. UPPER EXTREMITIES: 2+ pulses, warm, well-perfused. No cyanosis. No clubbing. No peripheral edema. LOWER EXTREMITIES: 2+ pulses, warm, well-perfused. No calf tenderness. No peripheral edema. NEUROLOGICAL: Cranial nerves II-XII intact. Normal speech. Normal gait. PSYCHIATRIC: Cooperative. Good eye contact. Appropriate mood and affect. SKIN: Warm, dry, normal turgor, no rashes or lesions noted, normal capillary refill. Laboratory Results - last 24 hr 08/17/18 08/17/18 08/17/18 11:10 11:27 11:27 WBC 22.6 H RBC 5.10 Hgb 15.8 Hct 46.2 MCV 90.7 MCH 31.0 MCHC 34.2 RDW 12.7 Plt Count 237 MPV 7.9 Absolute Neuts (auto) 19.9 Neutrophils % 87.8 H Lymphocytes % 5.6 L Monocytes % 6.4 Eosinophils % 0.0 Basophils % 0.2 Sodium 130 L Potassium 4.5 Chloride 100 Carbon Dioxide 22 Anion Gap 8 BUN 25 H Creatinine 1.3 Creat Clearance w eGFR 54.11 Random Glucose 316 H* Lactic Acid Calcium 8.6 Total Bilirubin 1.2 H AST 23 ALT 20 Alkaline Phosphatase 68 Total Protein 7.3 Albumin 3.6 Urine Color Urine Appearance Urine pH Ur Specific Pimento Urine Protein Urine Glucose (UA) Urine Ketones Urine Blood Urine Nitrite Urine Bilirubin Urine Urobilinogen Ur Leukocyte Esterase Urine RBC Urine WBC Ur Epithelial Cells Urine Bacteria Influenza A (Rapid) Negative Influenza B (Rapid) Negative 08/17/18 08/17/18 11:27 11:40 WBC RBC Hgb Hct MCV MCH MCHC RDW Plt Count MPV Absolute Neuts (auto) Neutrophils % Lymphocytes % Monocytes % Eosinophils % Basophils % Sodium Potassium Chloride Carbon Dioxide Anion Gap BUN Creatinine Creat Clearance w eGFR Random Glucose Lactic Acid 2.4 H* Calcium Total Bilirubin AST ALT Alkaline Phosphatase Total Protein Albumin Urine Color Yellow Urine Appearance Clear Urine pH 5.0 Ur Specific Pimento >= 1.030 Urine Protein 3+ H Urine Glucose (UA) Trace Urine Ketones 1+ H Urine Blood Trace-intact H Urine Nitrite Negative Urine Bilirubin 1+ H Urine Urobilinogen 0.2 Ur Leukocyte Esterase Trace H Urine RBC 0-3 Urine WBC 0-3 Ur Epithelial Cells 1+ Urine Bacteria Few Influenza A (Rapid) Influenza B (Rapid) ASSESSMENT/PLAN 73 year-old male with a PMH significant for HTN, HLD, Type II IDDM, BPH, and prostatis. Admitted for severe sepsis secondary to CAP. Severe sepsis secondary to community-acquired pneumonia --WBC 22.6k, lactic acid 2.4, ANUPAM consolidation on CXR and CT on admission --flu negative; get sputum culture; urine antigens; TB Gold --start ceftriaxone and azithromycin --got 1L in ED, given another 1L bolus now, then hourly IV fluids --duonebs QID --daily peak flow --daily pre post --ID following Hypertension --hold Losartan secondary to sepsis Hyperlipidemia --continue statin Type II IDDM --Novolog sliding scale coverage BPH h/o prostatitis --continue finasteride, tamsulosin FEN Fluids: NS @ 100mL/hr Electrolytes: replete as indicated Nutrition: diabetic, low sodium DVT prophylaxis: subq lovenox Physical therapy Dispo: continues to require inpatient care. Full code. Visit type - Emergency Visit Emergency Visit: Yes ED Registration Date: 08/17/18 Care time: The patient presented to the Emergency Department on the above date and was hospitalized for further evaluation of their emergent condition. - New Patient This patient is new to me today: Yes Date on this admission: 08/17/18 - Critical Care Critical Care patient: No
[2018-08-17] MEDS ORDERED: SODIUM CHLORIDE 1,000 ML IV STA (17:17)
[2018-08-17] MEDS ORDERED: DEXTROSE 5%-WATER 100 ML IVPB ONE (17:51)
[2018-08-17] MEDS: AZITHROMYCIN IVPB 500 MG/250 ML BAG IVPB SCH (18:05)
[2018-08-17] MEDS: CEFTRIAXONE 2 GM in DEXTROSE 5%-WATER 100 ML IVPB SCH (18:05)
[2018-08-17] MEDS ORDERED: SODIUM CHLORIDE 1,000 ML IV SCH (18:30)
--- NOTE | 2018-08-18 08:40 | CONS ---
DATE OF CONSULTATION: 08/17/2017 The patient is a 73-year-old male who is evaluated for pneumonia. He reports not feeling well for the past several days. He had developed generalized weakness, arthralgias, myalgias, bilateral flank pain, cough productive of yellowish sputum, and fever. He presented to the emergency room, where he was noted to have a markedly elevated white blood cell count. Chest x-ray showed a mass-like infiltrate, left midlung field. A CT scan confirmed the presence of a round consolidation in the left midlung field as well as a right upper lobe atelectatic consolidation. The patient denies any ill contacts. He is a nonsmoker. States he received influenza vaccine this year. He is originally from [facility]. He has been living in the [place] for the past 30 years. He denies any recent travel. No known TB exposure. PPD status not known. He states he tested HIV negative in the past; declines repeat testing. 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 PAST MEDICAL HISTORY: Positive for insulin-dependent diabetes mellitus, hypertension, BPH, hyperlipidemia. PAST SURGICAL HISTORY: Status post right total hip replacement. ALLERGIES: IODINE. MEDICATIONS: Flomax; Zocor; losartan; Humalog; glipizide; metformin. SOCIAL HISTORY: As per HPI. SYSTEMS REVIEW: Neurologic: No loss of consciousness, seizure activity, focal weakness. Cardiac: Negative chest pain or palpitations. Respiratory: As per HPI. Gastrointestinal: Negative vomiting or diarrhea. Genitourinary: Negative for urinary tract infection. LABORATORY DATA: White count 22.6 with 87 neutrophils, 5 lymphocytes, 6 monocytes; hematocrit 46.2; platelet count 237. BUN 25, creatinine 1.3, glucose 316. Lactic acid 2.4. Urinalysis with zero to 3 white cells. Influenza swab negative. PHYSICAL EXAMINATION: General: He is awake and alert. He is in no acute distress. Breathing is nonlabored. Vital Signs: Temperature 98.1, blood pressure 120/70, pulse 87 and regular, respirations 18/min. HEENT: Sclerae anicteric. Heart Sounds: S1, S2. Lungs: Clear bilaterally with no rhonchi, rales, or wheezing. Abdomen: Soft, obese, nontender. Extremities: One-plus edema. IMPRESSION: 1. Round left upper lobe pneumonia, community-acquired versus atypical. 2. Right upper lobe atelectatic consolidation, possible infiltrate. 3. Rule out underlying neoplasm. Air bronchograms appear to be present within the left upper lobe round consolidation, speaking more for inflammatory process than neoplastic. Obtain sputum culture, urine legionella and pneumococcal antigens, QuantiFERON. Empiric antibiotic coverage with Zithromax and ceftriaxone. He will need a followup CT scan to document resolution of this unusual-looking infiltrate. The patient declines HIV testing. Thank you for the kind referral. MARINA MIDDLETON M.D. [id number]
[2018-08-18] MEDS ORDERED: DEXTROSE 5%-WATER 100 ML IVPB ONE (09:13)
[2018-08-18 09:14] LABS: BASO % 0.2 % (0-2.0); EOS % 0.6 % (0-4.5); HEMATOCRIT 39.2 % (35.4-49); HEMOGLOBIN 12.9 GM/dl (11.7-16.9); LYMPH % 16.9 % (8-40); MCH 30.4 pg (25.7-33.7); MCHC 32.9 g/dl (32.0-35.9); MEAN CELL VOLUME 92.2 fl (80-96); MEAN PLT VOLUME 8.4 fl (7.5-11.1); NEUT % 77.3 % (42.8-82.8); PLATELET COUNT 207 K/MM3 (134-434); RBC 4.25 M/mm3 (4.00-5.60); RDW 12.9 % (11.9-15.9); WHITE BLOOD COUNT 15.5 K/mm3 (4.0-10.8)
[2018-08-18 09:32] LABS: ALBUMIN 2.7 g/dl (3.5-5.0); ALK PHOS 62 U/L (32-92); ANION GAP 6 MMOL/L (8-16); BILIRUBIN,TOTAL 0.6 mg/dl (0.2-1.0); BLOOD UREA NITROGEN 19 mg/dl (7-18); CALCIUM 8.2 mg/dl (8.4-10.2); CHLORIDE 107 mmol/L (98-107); CO2 22 mmol/L (22-28); CREATININE 0.6 mg/dl (0.6-1.3); GLUCOSE,RANDOM 163 mg/dl (74-106); POTASSIUM 4.4 mmol/L (3.5-5.1); SGOT/AST 13 U/L (10-42); SGPT/ALT 15 U/L (10-40); SODIUM 135 mmol/L (136-145); TOT PROT 5.7 g/dl (6.4-8.3)
[2018-08-18] MEDS: CEFTRIAXONE 2 GM in DEXTROSE 5%-WATER 100 ML IVPB SCH (09:47)
[2018-08-18] MEDS: FINASTERIDE 5 MG TABLET (FP) PO SCH (09:48)
[2018-08-18] MEDS: AZITHROMYCIN IVPB 500 MG/250 ML BAG IVPB SCH (09:48)
[2018-08-18] MEDS: ENOXAPARIN NA (PORCINE) 40 MG/0.4 ML DISP.SYRIN SQ SCH (09:48)
--- NOTE | 2018-08-18 11:48 | PN ---
Physical Exam: SUBJECTIVE: Patient seen and examined, pt NAD, working with PT OBJECTIVE: Vital Signs Period Temp Pulse Resp BP Sys/Hernandez Pulse Ox Last 24 Hr 97.9 F-98.6 F 63-87 16-18 105-138/53-70 94-98 GENERAL: The patient is awake, alert, and fully oriented, in no acute distress. HEAD: Normal with no signs of trauma. EYES: PERRL, extraocular movements intact, sclera anicteric, conjunctiva clear. No ptosis. ENT: Ears normal, nares patent, oropharynx clear without exudates, moist mucous membranes. NECK: Trachea midline, full range of motion, supple. LUNGS: Breath sounds equal, clear to auscultation bilaterally, no wheezes, no crackles, no accessory muscle use. HEART: Regular rate and rhythm, S1, S2 without murmur, rub or gallop. ABDOMEN: Soft, nontender, nondistended, normoactive bowel sounds, no guarding, no rebound, no hepatosplenomegaly, no masses. EXTREMITIES: 2+ pulses, warm, well-perfused, no edema. NEUROLOGICAL: Cranial nerves II through XII grossly intact. Normal speech, gait not observed. PSYCH: Normal mood, normal affect. SKIN: Warm, dry, normal turgor, no rashes or lesions noted Laboratory Results - last 24 hr 08/17/18 08/17/18 08/17/18 11:10 11:27 11:27 WBC 22.6 H RBC 5.10 Hgb 15.8 Hct 46.2 MCV 90.7 MCH 31.0 MCHC 34.2 RDW 12.7 Plt Count 237 MPV 7.9 Absolute Neuts (auto) 19.9 Neutrophils % 87.8 H Lymphocytes % 5.6 L Monocytes % 6.4 Eosinophils % 0.0 Basophils % 0.2 Sodium 130 L Potassium 4.5 Chloride 100 Carbon Dioxide 22 Anion Gap 8 BUN 25 H Creatinine 1.3 Creat Clearance w eGFR 54.11 POC Glucometer Random Glucose 316 H* Lactic Acid Calcium 8.6 Magnesium Total Bilirubin 1.2 H AST 23 ALT 20 Alkaline Phosphatase 68 Total Protein 7.3 Albumin 3.6 Urine Color Urine Appearance Urine pH Ur Specific [place] Urine Protein Urine Glucose (UA) Urine Ketones Urine Blood Urine Nitrite Urine Bilirubin Urine Urobilinogen Ur Leukocyte Esterase Urine RBC Urine WBC Ur Epithelial Cells Urine Bacteria Influenza A (Rapid) Negative Influenza B (Rapid) Negative 08/17/18 08/17/18 08/17/18 11:27 11:40 13:20 WBC RBC Hgb Hct MCV MCH MCHC RDW Plt Count MPV Absolute Neuts (auto) Neutrophils % Lymphocytes % Monocytes % Eosinophils % Basophils % Sodium Potassium Chloride Carbon Dioxide Anion Gap BUN Creatinine Creat Clearance w eGFR POC Glucometer [phone] Random Glucose Lactic Acid 2.4 H* Calcium Magnesium Total Bilirubin AST ALT Alkaline Phosphatase Total Protein Albumin Urine Color Yellow Urine Appearance Clear Urine pH 5.0 Ur Specific [place] >= 1.030 Urine Protein 3+ H Urine Glucose (UA) Trace Urine Ketones 1+ H Urine Blood Trace-intact H Urine Nitrite Negative Urine Bilirubin 1+ H Urine Urobilinogen 0.2 Ur Leukocyte Esterase Trace H Urine RBC 0-3 Urine WBC 0-3 Ur Epithelial Cells 1+ Urine Bacteria Few Influenza A (Rapid) Influenza B (Rapid) 08/17/18 08/17/18 08/17/18 15:20 23:05 23:18 WBC RBC Hgb Hct MCV MCH MCHC RDW Plt Count MPV Absolute Neuts (auto) Neutrophils % Lymphocytes % Monocytes % Eosinophils % Basophils % Sodium Potassium Chloride Carbon Dioxide Anion Gap BUN Creatinine Creat Clearance w eGFR POC Glucometer 216 Random Glucose Lactic Acid 2.7 H* 1.0 Calcium Magnesium Total Bilirubin AST ALT Alkaline Phosphatase Total Protein Albumin Urine Color Urine Appearance Urine pH Ur Specific [place] Urine Protein Urine Glucose (UA) Urine Ketones Urine Blood Urine Nitrite Urine Bilirubin Urine Urobilinogen Ur Leukocyte Esterase Urine RBC Urine WBC Ur Epithelial Cells Urine Bacteria Influenza A (Rapid) Influenza B (Rapid) 08/18/18 08/18/18 08/18/18 06:05 07:00 07:00 WBC 15.5 H RBC 4.25 Hgb 12.9 Hct 39.2 D MCV 92.2 MCH 30.4 MCHC 32.9 RDW 12.9 Plt Count 207 MPV 8.4 Absolute Neuts (auto) 12.0 Neutrophils % 77.3 Lymphocytes % 16.9 D Monocytes % 5.0 Eosinophils % 0.6 D Basophils % 0.2 Sodium 135 L Potassium 4.4 Chloride 107 Carbon Dioxide 22 Anion Gap 6 L BUN 19 H Creatinine 0.6 Creat Clearance w eGFR > 60 POC Glucometer 168 Random Glucose 163 H D Lactic Acid Calcium 8.2 L Magnesium 2.0 Total Bilirubin 0.6 AST 13 D ALT 15 D Alkaline Phosphatase 62 Total Protein 5.7 L Albumin 2.7 L Urine Color Urine Appearance Urine pH Ur Specific [place] Urine Protein Urine Glucose (UA) Urine Ketones Urine Blood Urine Nitrite Urine Bilirubin Urine Urobilinogen Ur Leukocyte Esterase Urine RBC Urine WBC Ur Epithelial Cells Urine Bacteria Influenza A (Rapid) Influenza B (Rapid) Active Medications Generic Name Dose Route Start Last Admin Trade Name Freq PRN Reason Stop Dose Admin Atorvastatin Calcium 10 mg 08/18/18 22:00 Lipitor - PO HS [facility] Enoxaparin Sodium 40 mg 08/18/18 10:00 08/18/18 09:48 Lovenox - SQ 40 mg DAILY [facility] Administration Finasteride 5 mg 08/18/18 10:00 08/18/18 09:48 Proscar - PO 5 mg DAILY [facility] Administration Ceftriaxone Sodium 2 gm/ 100 mls @ 200 mls/hr 08/17/18 17:15 08/18/18 09:47 Dextrose IVPB 200 mls/hr DAILY [facility] Administration Protocol Azithromycin 500 mg in 250 mls @ 250 mls/hr 08/17/18 17:15 08/18/18 09:48 Zithromax 500mg Ivpb (Pre-Docked) IVPB 250 mls/hr DAILY [facility] Administration Sodium Chloride 1,000 mls @ 100 mls/hr 08/17/18 18:30 Normal Saline - IV ASDIR MARIA LUZ Tamsulosin HCl 0.4 mg 08/18/18 22:00 Flomax - PO HS MARIA LUZ ASSESSMENT/PLAN: 73 year-old male with a PMH significant for HTN, HLD, Type II IDDM, BPH, and prostatis. Admitted for severe sepsis secondary to CAP. Severe sepsis secondary to community-acquired pneumonia --WBC 22.6k, lactic acid 2.4, today WBC 15.5, Lactic 1.0 --ANUPAM consolidation on CXR and CT on admission --flu negative; get sputum culture; urine antigens; TB Gold --blood cx no growth --start ceftriaxone and azithromycin --got 1L in ED, given another 1L bolus now, then hourly IV fluids --duonebs QID --daily peak flow --daily pre post --ID following Hypertension --hold Losartan secondary to sepsis Hyperlipidemia --continue statin Type II IDDM --Novolog sliding scale coverage BPH h/o prostatitis --continue finasteride, tamsulosin FEN Fluids: NS @ 100mL/hr Electrolytes: replete as indicated Nutrition: diabetic, low sodium DVT prophylaxis: subq lovenox Physical therapy Dispo: continues to require inpatient care. Full code. Visit type - Emergency Visit Emergency Visit: Yes ED Registration Date: 08/17/18 Care time: The patient presented to the Emergency Department on the above date and was hospitalized for further evaluation of their emergent condition. - New Patient This patient is new to me today: Yes Date on this admission: 08/18/18 - Critical Care Critical Care patient: No
[2018-08-18] MEDS: SODIUM CHLORIDE 1,000 ML IV SCH (17:54)
--- NOTE | 2018-08-18 19:39 | EKG ---
Test Reason : Blood Pressure : / mmHG Vent. Rate : 095 BPM Atrial Rate : 095 BPM P-R Int : 168 ms QRS Dur : 080 ms QT Int : 334 ms P-R-T Axes : 044 032 052 degrees QTc Int : 419 ms NORMAL SINUS RHYTHM NORMAL ECG WHEN COMPARED WITH ECG OF 20-MAY-2017 20:35, VENT. RATE HAS INCREASED BY 36 BPM Confirmed by DAISHA BONILLA MD ([id number]) on 08/18/2018 7:39:17 PM Referred By: PENG ABREU Confirmed By:DAISHA BONILLA MD
[2018-08-18] MEDS: ATORVASTATIN CA 10 MG TABLET (FP) PO SCH (21:11)
[2018-08-18] MEDS: TAMSULOSIN HCL 0.4 MG CAP PO SCH (21:11)
[2018-08-19 08:55] LABS: BASO % 0.3 % (0-2.0); EOS % 1.6 % (0-4.5); HEMATOCRIT 40.2 % (35.4-49); LYMPH % 29.3 % (8-40); MCH 31.9 pg (25.7-33.7); MCHC 34.9 g/dl (32.0-35.9); MEAN CELL VOLUME 91.4 fl (80-96); MEAN PLT VOLUME 8.4 fl (7.5-11.1); MONO % 7.7 % (3.8-10.2); NEUT % 61.1 % (42.8-82.8); PLATELET COUNT 230 K/MM3 (134-434); RDW 12.6 % (11.9-15.9)
[2018-08-19 09:33] LABS: ALBUMIN 2.9 g/dl (3.5-5.0); ALK PHOS 62 U/L (32-92); ANION GAP 8 MMOL/L (8-16); BILIRUBIN,TOTAL 0.4 mg/dl (0.2-1.0); BLOOD UREA NITROGEN 13 mg/dl (7-18); CALCIUM 8.5 mg/dl (8.4-10.2); CHLORIDE 102 mmol/L (98-107); CO2 23 mmol/L (22-28); CREATININE 0.7 mg/dl (0.6-1.3); GLUCOSE,RANDOM 237 mg/dl (74-106); MAGNESIUM 1.9 mg/dL (1.8-2.4); POTASSIUM 4.6 mmol/L (3.5-5.1); SGOT/AST 12 U/L (10-42); SGPT/ALT 16 U/L (10-40); SODIUM 133 mmol/L (136-145); TOT PROT 6.2 g/dl (6.4-8.3)
[2018-08-19] MEDS ORDERED: DEXTROSE 5%-WATER 100 ML IVPB ONE (09:59)
[2018-08-19] MEDS: ENOXAPARIN NA (PORCINE) 40 MG/0.4 ML DISP.SYRIN SQ SCH (10:06)
[2018-08-19] MEDS: AZITHROMYCIN IVPB 500 MG/250 ML BAG IVPB SCH (10:07)
[2018-08-19] MEDS: CEFTRIAXONE 2 GM in DEXTROSE 5%-WATER 100 ML IVPB SCH (10:07)
[2018-08-19] MEDS: FINASTERIDE 5 MG TABLET (FP) PO SCH (10:08)
--- NOTE | 2018-08-19 15:54 | PN ---
Physical Exam: SUBJECTIVE: Patient seen and examined sitting on edge of bed. Has shoulder and back pain with coughing. OBJECTIVE: Vital Signs Period Temp Pulse Resp BP Sys/Hernandez Pulse Ox Last 24 Hr 98 F-98.4 F 74-81 18-18 129-132/66-82 97-98 GENERAL: The patient is awake, alert, and fully oriented, in no acute distress. LUNGS: CTA HEART: Regular rate and rhythm, S1, S2 ABDOMEN: Soft, nontender, nondistended EXTREMITIES: 2+ pulses, warm, well-perfused, no edema. NEUROLOGICAL: Cranial nerves II through XII grossly intact. Normal speech, steady gait Laboratory Results - last 24 hr 08/19/18 08/19/18 07:00 07:00 WBC 7.0 RBC 4.40 Hgb 14.0 Hct 40.2 MCV 91.4 MCH 31.9 MCHC 34.9 RDW 12.6 Plt Count 230 MPV 8.4 Absolute Neuts (auto) 4.3 Neutrophils % 61.1 D Lymphocytes % 29.3 D Monocytes % 7.7 Eosinophils % 1.6 D Basophils % 0.3 Sodium 133 L Potassium 4.6 Chloride 102 Carbon Dioxide 23 Anion Gap 8 BUN 13 Creatinine 0.7 Creat Clearance w eGFR > 60 Random Glucose 237 H D Calcium 8.5 Magnesium 1.9 Total Bilirubin 0.4 AST 12 ALT 16 Alkaline Phosphatase 62 Total Protein 6.2 L Albumin 2.9 L Active Medications Generic Name Dose Route Start Last Admin Trade Name Freq PRN Reason Stop Dose Admin Atorvastatin Calcium 10 mg 08/18/18 22:00 08/18/18 21:11 Lipitor - PO 10 mg HS MARIA LUZ Administration Enoxaparin Sodium 40 mg 08/18/18 10:00 08/19/18 10:06 Lovenox - SQ 40 mg DAILY MARIA LUZ Administration Finasteride 5 mg 08/18/18 10:00 08/19/18 10:08 Proscar - PO 5 mg DAILY MARIA LUZ Administration Ceftriaxone Sodium 2 gm/ 100 mls @ 200 mls/hr 08/17/18 17:15 08/19/18 10:07 Dextrose IVPB 200 mls/hr DAILY MARIA LUZ Administration Protocol Azithromycin 500 mg in 250 mls @ 250 mls/hr 08/17/18 17:15 08/19/18 10:07 Zithromax 500mg Ivpb (Pre-Docked) IVPB 250 mls/hr DAILY [facility]IA LUZ Administration Sodium Chloride 1,000 mls @ 100 mls/hr 08/17/18 18:30 08/18/18 17:54 Normal Saline - IV 100 mls/hr ASDIR MARIA LUZ Administration Tamsulosin HCl 0.4 mg 08/18/18 22:00 08/18/18 21:11 Flomax - PO 0.4 mg HS MARIA LUZ Administration ASSESSMENT/PLAN 73 year-old male with a PMH significant for HTN, HLD, Type II IDDM, BPH, and prostatitis. Admitted for severe sepsis secondary to CAP. Severe sepsis secondary to community-acquired pneumonia --WBC 22.6k, lactic acid 2.4, ANUPAM consolidation on CXR and CT on admission --afebrile, leukocytosis resolved, lactic acidosis resolved, sepsis resolved --flu negative; sputum culture negative, urine antigens negative; TB Gold pending --continue ceftriaxone and azithromycin --duonebs QID --daily peak flow --daily pre post --ID following Hypertension --start home Losartan Hyperlipidemia --continue statin Type II IDDM --Novolog sliding scale coverage BPH h/o prostatitis --continue finasteride, tamsulosin FEN Fluids: PO intake adequate Electrolytes: replete as indicated Nutrition: diabetic, low sodium DVT prophylaxis: subq lovenox Physical therapy Dispo: continues to require inpatient care. Full code. Visit type - Emergency Visit Emergency Visit: Yes ED Registration Date: 08/17/18 Care time: The patient presented to the Emergency Department on the above date and was hospitalized for further evaluation of their emergent condition. - New Patient This patient is new to me today: No - Critical Care Critical Care patient: No
[2018-08-19] MEDS: SODIUM CHLORIDE 1,000 ML IV SCH (18:13)
[2018-08-19] MEDS: ATORVASTATIN CA 10 MG TABLET (FP) PO SCH (21:25)
[2018-08-19] MEDS: TAMSULOSIN HCL 0.4 MG CAP PO SCH (21:25)
[2018-08-20] MEDS ORDERED: DEXTROSE 5%-WATER 100 ML IVPB ONE (09:23)
[2018-08-20] MEDS: ENOXAPARIN NA (PORCINE) 40 MG/0.4 ML DISP.SYRIN SQ SCH (09:50)
[2018-08-20] MEDS: FINASTERIDE 5 MG TABLET (FP) PO SCH (09:51)
[2018-08-20] MEDS: LOSARTAN POTASSIUM 50 MG TABLET (FP) PO SCH (09:51)
[2018-08-20] MEDS: CEFTRIAXONE 2 GM in DEXTROSE 5%-WATER 100 ML IVPB SCH (09:52)
[2018-08-20] MEDS: AZITHROMYCIN IVPB 500 MG/250 ML BAG IVPB SCH (09:54)
--- NOTE | 2018-08-20 10:33 | PN ---
Progress Note, Physician History of Present Illness: Awake, alert Supine in bed Reports less cough/ sputum No c/o chest pain/ dyspnea No c/o fever/ chills Afebrile WBC improved WNL BC (-) Sputum c/s normal benji Legionella ag (-) - Current Medication List Current Medications: Active Medications Atorvastatin Calcium (Lipitor -) 10 mg PO HS [facility]ENDING [facility] TO [facility] Last Admin: 08/19/18 21:25 Dose: 10 mg Enoxaparin Sodium (Lovenox -) 40 mg SQ DAILY [facility] Last Admin: 08/20/18 09:50 Dose: 40 mg Finasteride (Proscar -) 5 mg PO DAILY [facility] Last Admin: 08/20/18 09:51 Dose: 5 mg Ceftriaxone Sodium 2 gm/ (Dextrose) 100 mls @ 200 mls/hr IVPB DAILY [facility] TO [facility]; Protocol Last Admin: 08/20/18 09:52 Dose: 200 mls/hr Azithromycin (Zithromax 500mg Ivpb (Pre-Docked)) 500 mg in 250 mls @ 250 mls/ hr IVPB DAILY [facility] Last Admin: 08/20/18 09:54 Dose: 250 mls/hr Losartan Potassium (Cozaar -) 50 mg PO DAILY [facility] Last Admin: 08/20/18 09:51 Dose: 50 mg Tamsulosin HCl (Flomax -) 0.4 mg PO HS [facility] Last Admin: 08/19/18 21:25 Dose: 0.4 mg - Objective Vital Signs: Vital Signs Temperature 98.3 F 08/20/18 10:00 Pulse Rate 70 08/20/18 10:00 Respiratory Rate 18 08/20/18 10:00 Blood Pressure 145/71 08/20/18 10:00 O2 Sat by Pulse Oximetry (%) 95 08/20/18 10:00 Constitutional: Yes: No Distress Eyes: Yes: Conjunctiva Clear Cardiovascular: Yes: Regular Rate and Rhythm, S1, S2 Respiratory: Yes: Other (+ crepitations at bases bilaterally) Gastrointestinal: Yes: Normal Bowel Sounds, Soft. No: Other Edema: No Labs: CBC, BMP 08/19/18 07:00 08/19/18 07:00 Assessment/Plan Community acquired v. atypical ANUPAM pneumonia ? underlying lung mass Continue zithromax/ ceftriaxone Follow up CXR
[2018-08-20] MEDS: INSULIN (NOVOLOG) ASPART 100 UNITS/ML 10ML VIAL SQ SCH ×3 (12:18→23:35)
--- NOTE | 2018-08-20 16:49 | PN ---
Physical Exam: SUBJECTIVE: Patient seen and examined OBJECTIVE: Vital Signs Period Temp Pulse Resp BP Sys/Hernandez Pulse Ox Last 24 Hr 97.8 F-98.6 F 70-82 16-20 131-146/66-75 95-98 GENERAL: The patient is awake, alert, and fully oriented, in no acute distress. LUNGS: CTA HEART: Regular rate and rhythm, S1, S2 ABDOMEN: Soft, nontender, nondistended EXTREMITIES: 2+ pulses, warm, well-perfused, no edema. NEUROLOGICAL: Cranial nerves II through XII grossly intact. Normal speech, steady gait CBCD WBC 7.0 K/mm3 (4.0-10.8) 08/19/18 07:00 RBC 4.40 M/mm3 (4.00-5.60) 08/19/18 07:00 Hgb 14.0 GM/dl (11.7-16.9) 08/19/18 07:00 Hct 40.2 % (35.4-49) 08/19/18 07:00 MCV 91.4 fl (80-96) 08/19/18 07:00 MCHC 34.9 g/dl (32.0-35.9) 08/19/18 07:00 RDW 12.6 % (11.9-15.9) 08/19/18 07:00 Plt Count 230 K/MM3 (134-434) 08/19/18 07:00 MPV 8.4 fl (7.5-11.1) 08/19/18 07:00 CMP Sodium 133 mmol/L (136-145) L 08/19/18 07:00 Potassium 4.6 mmol/L (3.5-5.1) 08/19/18 07:00 Chloride 102 mmol/L (98-107) 08/19/18 07:00 Carbon Dioxide 23 mmol/L (22-28) 08/19/18 07:00 Anion Gap 8 MMOL/L (8-16) 08/19/18 07:00 BUN 13 mg/dl (7-18) 08/19/18 07:00 Creatinine 0.7 mg/dl (0.6-1.3) 08/19/18 07:00 Creat Clearance w eGFR > 60 (>60) 08/19/18 07:00 Calcium 8.5 mg/dl (8.4-10.2) 08/19/18 07:00 Total Bilirubin 0.4 mg/dl (0.2-1.0) 08/19/18 07:00 AST 12 U/L (10-42) 08/19/18 07:00 ALT 16 U/L (10-40) 08/19/18 07:00 Alkaline Phosphatase 62 U/L (32-92) 08/19/18 07:00 Total Protein 6.2 g/dl (6.4-8.3) L 08/19/18 07:00 Albumin 2.9 g/dl (3.5-5.0) L 08/19/18 07:00 Laboratory Results - last 24 hr 08/20/18 12:08 POC Glucometer 275 Active Medications Generic Name Dose Route Start Last Admin Trade Name Freq PRN Reason Stop Dose Admin Atorvastatin Calcium 10 mg 08/18/18 22:00 08/19/18 21:25 Lipitor - PO 10 mg HS MARIA LUZ Administration Enoxaparin Sodium 40 mg 08/18/18 10:00 08/20/18 09:50 Lovenox - SQ 40 mg DAILY MARIA LUZ Administration Finasteride 5 mg 08/18/18 10:00 08/20/18 09:51 Proscar - PO 5 mg DAILY MARIA LUZ Administration Ceftriaxone Sodium 2 gm/ 100 mls @ 200 mls/hr 08/17/18 17:15 08/20/18 09:52 Dextrose IVPB 200 mls/hr DAILY MARIA LUZ Administration Protocol Azithromycin 500 mg in 250 mls @ 250 mls/hr 08/17/18 17:15 08/20/18 09:54 Zithromax 500mg Ivpb (Pre-Docked) IVPB 250 mls/hr DAILY MARIA LUZ Administration Insulin Aspart 0 units 08/20/18 12:30 08/20/18 12:18 Novolog Vial SQ 6 unit ACHS MARIA LUZ Administration Protocol Losartan Potassium 50 mg 08/20/18 10:00 08/20/18 09:51 Cozaar - PO 50 mg DAILY MARIA LUZ Administration Tamsulosin HCl 0.4 mg 08/18/18 22:00 08/19/18 21:25 Flomax - PO 0.4 mg HS MARIA LUZ Administration ASSESSMENT/PLAN: 73 year-old male with a PMH significant for HTN, HLD, Type II IDDM, BPH, and prostatitis. Admitted for severe sepsis secondary to CAP. Severe sepsis secondary to community-acquired pneumonia --08/17 CT chest: large ANUPAM infiltrate; RUL area of consolidation --afebrile, leukocytosis resolved, lactic acidosis resolved, sepsis resolved --flu negative; sputum culture negative, urine antigens negative; TB Gold pending --continue ceftriaxone and azithromycin (last dose 08/21) --duonebs QID --daily peak flow --ID following Hypertension --continue losartan Hyperlipidemia --continue statin Type II IDDM --Novolog sliding scale coverage BPH h/o prostatitis --continue finasteride, tamsulosin FEN Fluids: PO intake adequate Electrolytes: replete as indicated Nutrition: diabetic, low sodium DVT prophylaxis: subq lovenox Physical therapy Dispo: continues to require inpatient care. Full code. Visit type - Emergency Visit Emergency Visit: Yes ED Registration Date: 08/17/18 Care time: The patient presented to the Emergency Department on the above date and was hospitalized for further evaluation of their emergent condition. - New Patient This patient is new to me today: No - Critical Care Critical Care patient: No
[2018-08-20] MEDS: TAMSULOSIN HCL 0.4 MG CAP PO SCH (21:06)
[2018-08-20] MEDS: ATORVASTATIN CA 10 MG TABLET (FP) PO SCH (21:06)
[2018-08-20] MEDS ORDERED: INSULIN (NOVOLOG) ASPART 100 UNITS/ML 10ML VIAL ONE (21:12)
[2018-08-21] MEDS: ACETAMINOPHEN 325 MG TABLET (FP) PO PRN ×2 (00:58→07:42)
[2018-08-21 06:34] VITALS: TEMP 98
[2018-08-21] MEDS: INSULIN (NOVOLOG) ASPART 100 UNITS/ML 10ML VIAL SQ SCH ×2 (07:08→12:04)
[2018-08-21 08:03] LABS: BASO % 0.4 % (0-2.0); EOS % 2.7 % (0-4.5); HEMATOCRIT 43.6 % (35.4-49); LYMPH % 32.7 % (8-40); MCHC 34.3 g/dl (32.0-35.9); MEAN CELL VOLUME 90.3 fl (80-96); MEAN PLT VOLUME 7.6 fl (7.5-11.1); MONO % 7.9 % (3.8-10.2); NEUT % 56.3 % (42.8-82.8); PLATELET COUNT 298 K/MM3 (134-434); RBC 4.83 M/mm3 (4.00-5.60); RDW 12.3 % (11.9-15.9); WHITE BLOOD COUNT 6.4 K/mm3 (4.0-10.8)
[2018-08-21 08:04] LABS: ALBUMIN 3.1 g/dl (3.4-5.0); ALK PHOS 66 U/L (45-117); ANION GAP 8 MMOL/L (8-16); BILIRUBIN,TOTAL 0.4 mg/dl (0.2-1); BLOOD UREA NITROGEN 13 mg/dl (7-18); CALCIUM 8.9 mg/dl (8.5-10); CHLORIDE 102 mmol/L (98-107); CO2 23 mmol/L (21-32); CREATININE 0.6 mg/dl (0.55-1.3); GLUCOSE,RANDOM 206 mg/dl (74-106); POTASSIUM 4.1 mmol/L (3.5-5.1); SGOT/AST 19 U/L (15-37); SGPT/ALT 23 U/L (13-61); SODIUM 133 mmol/L (136-145); TOT PROT 6.5 g/dl (6.4-8.2)
[2018-08-21] MEDS ORDERED: DEXTROSE 5%-WATER 100 ML IVPB ONE (09:45)
[2018-08-21] MEDS: AZITHROMYCIN IVPB 500 MG/250 ML BAG IVPB SCH (09:52)
[2018-08-21] MEDS: CEFTRIAXONE 2 GM in DEXTROSE 5%-WATER 100 ML IVPB SCH (09:53)
[2018-08-21] MEDS: FINASTERIDE 5 MG TABLET (FP) PO SCH (09:53)
[2018-08-21] MEDS: ENOXAPARIN NA (PORCINE) 40 MG/0.4 ML DISP.SYRIN SQ SCH (09:53)
[2018-08-21] MEDS: LOSARTAN POTASSIUM 50 MG TABLET (FP) PO SCH (09:53)
[2018-08-21 10:07] VITALS: BP 121/53; PULSE 80
--- NOTE | 2018-08-21 10:55 | PN ---
Progress Note, Physician History of Present Illness: Awake, alert Supine in bed Reports less cough/ sputum No c/o chest pain/ dyspnea No c/o fever/ chills Afebrile WBC improved WNL BC (-) Sputum c/s normal benji Legionella ag (-) - Current Medication List Current Medications: Active Medications Acetaminophen (Tylenol -) 650 mg PO Q6H PRN PRN Reason: PAIN OR FEVER Last Admin: 08/21/18 07:42 Dose: 650 mg Atorvastatin Calcium (Lipitor -) 10 mg PO HS [facility] Last Admin: 08/20/18 21:06 Dose: 10 mg Enoxaparin Sodium (Lovenox -) 40 mg SQ DAILY [facility] Last Admin: 08/21/18 09:53 Dose: 40 mg Finasteride (Proscar -) 5 mg PO DAILY [facility] Last Admin: 08/21/18 09:53 Dose: 5 mg Ceftriaxone Sodium 2 gm/ (Dextrose) 100 mls @ 200 mls/hr IVPB DAILY [facility]; Protocol Last Admin: 08/21/18 09:53 Dose: 200 mls/hr Azithromycin (Zithromax 500mg Ivpb (Pre-Docked)) 500 mg in 250 mls @ 250 mls/ hr IVPB DAILY [facility] Last Admin: 08/21/18 09:52 Dose: 250 mls/hr Insulin Aspart (Novolog Vial) 0 units SQ ACHS [facility]; Protocol Last Admin: 08/21/18 07:08 Dose: 4 unit Losartan Potassium (Cozaar -) 50 mg PO DAILY [facility] Last Admin: 08/21/18 09:53 Dose: 50 mg Tamsulosin HCl (Flomax -) 0.4 mg PO HS [facility] Last Admin: 08/20/18 21:06 Dose: 0.4 mg - Objective Vital Signs: Vital Signs Temperature 98.0 F 08/21/18 06:32 Pulse Rate 80 08/21/18 10:06 Respiratory Rate 18 08/21/18 10:06 Blood Pressure 121/53 L 08/21/18 10:06 O2 Sat by Pulse Oximetry (%) 96 08/21/18 10:06 Constitutional: Yes: No Distress Eyes: Yes: Conjunctiva Clear Cardiovascular: Yes: Regular Rate and Rhythm, S1, S2 Respiratory: Yes: CTA Bilaterally Gastrointestinal: Yes: Normal Bowel Sounds. No: Tenderness Edema: No Labs: CBC, BMP 08/21/18 07:00 08/21/18 07:00 Assessment/Plan Community acquired v. atypical ANUPAM pneumonia ? underlying lung mass Day #5 zithromax/ ceftriaxone May substitute levaquin 750mg po qd x 10d Needs outpatient follow up CT chest Follow up Dr Mckenzie
--- NOTE | 2018-08-21 11:01 | DS ---
Physical Exam: SUBJECTIVE: Patient seen and examined at bedside. Feels well, feels ready to go home. OBJECTIVE: Vital Signs Period Temp Pulse Resp BP Sys/Hernandez Pulse Ox Last 24 Hr 98.0 F-98.8 F 72-80 17-20 121-145/53-75 96-98 PHYSICAL EXAM GENERAL: The patient is awake, alert, and fully oriented, in no acute distress. LUNGS: CTA HEART: Regular rate and rhythm, S1, S2 ABDOMEN: Soft, nontender, nondistended EXTREMITIES: 2+ pulses, warm, well-perfused, no edema. NEUROLOGICAL: Cranial nerves II through XII grossly intact. Normal speech, steady gait LABS Laboratory Results - last 24 hr 08/20/18 08/20/18 08/20/18 12:08 16:46 21:08 WBC RBC Hgb Hct MCV MCH MCHC RDW Plt Count MPV Absolute Neuts (auto) Neutrophils % Lymphocytes % Monocytes % Eosinophils % Basophils % Sodium Potassium Chloride Carbon Dioxide Anion Gap BUN Creatinine Creat Clearance w eGFR POC Glucometer 275 278 201 Random Glucose Calcium Magnesium Total Bilirubin AST ALT Alkaline Phosphatase Total Protein Albumin 08/21/18 08/21/18 08/21/18 06:12 07:00 07:00 WBC 6.4 RBC 4.83 Hgb 15.0 Hct 43.6 MCV 90.3 MCH 31.0 MCHC 34.3 RDW 12.3 Plt Count 298 D MPV 7.6 Absolute Neuts (auto) 3.6 Neutrophils % 56.3 Lymphocytes % 32.7 Monocytes % 7.9 Eosinophils % 2.7 Basophils % 0.4 Sodium 133 L Potassium 4.1 Chloride 102 Carbon Dioxide 23 Anion Gap 8 BUN 13 Creatinine 0.6 Creat Clearance w eGFR > 60 POC Glucometer 203 Random Glucose 206 H Calcium 8.9 Magnesium 2.0 Total Bilirubin 0.4 AST 19 ALT 23 Alkaline Phosphatase 66 Total Protein 6.5 Albumin 3.1 L HOSPITAL COURSE: Date of Admission:08/17/18 Date of Discharge: 08/21/18 Pre hospital course 73 year-old male with a PMH significant for HTN, HLD, Type II IDDM, BPH, and prostatitis. Presented with complaint of cough, fever, and myaglia x several days. Patient was sick one week ago then started to feel better until yesterday when he started having a bad cough and body aches. Patient denies dysuria but complains of bilateral flank pain. He saw his PCP one week ago and was tested for flu but unsure of results. His cough is productive of yellow sputum. ER course was notable for: (1) WBC 22.6k (2) Na 130, lactic acid 2.4 (3) CXR: new left-sided mass in left midlung 5.5 x 5.8cm (4) CT chest: large left upper lobe infiltrate suspicious for acute pneumonia; smaller area of consolidation RUL; no evidence of pulmonary mass Subsequent hospital course 73 year-old male with a PMH significant for HTN, HLD, Type II IDDM, BPH, and prostatitis. Admitted for severe sepsis secondary to CAP. Severe sepsis secondary to community-acquired pneumonia --08/17 CT chest: large ANUPAM infiltrate; RUL area of consolidation --afebrile, leukocytosis resolved, lactic acidosis resolved, sepsis resolved --flu negative; sputum culture negative, urine antigens negative; TB Gold pending --completed azithro x 5 days; ceftriaxone x 5 days; discharge on levofloxacin PO x 10 days --followup with Dr. Mckenzie as outpatient, will need repeat CT in ~4 weeks Hypertension --BP was stable --continued losartan Hyperlipidemia --continued statin Type II IDDM --Novolog sliding scale coverage BPH h/o prostatitis --continued finasteride, tamsulosin Minutes to complete discharge: 35 Discharge Summary Reason For Visit: HYPERGLYCEMIA, LUNG MASS, PHEUMONIA Current Active Problems Hyperglycemia (Acute) Lung mass (Acute) Pneumonia (Acute) Condition: Improved - Instructions Diet, Activity, Other Instructions: You are being discharged today from the hospital. You were diagnosed with bilateral pneumonia. You need to continue to take antibiotics for the next 10 days. A prescription has been sent to your pharmacy for levaquin. Take this medication as directed. While you are taking levaquin DO NOT ENGAGE IN HEAVY LIFTING OR IMPACT EXERCISE. THIS COULD LEAD TO TENDON RUPTURE. You have an appointment with Dr. Mckenzie on AUGUST 29 at 2:30pm. You must go to this appointment. You will need follow up imaging which Dr. Mckenzie will order. Return to the emergency department for any new or worsening symptoms. Referrals: Hang Mckenzie MD [Primary Care Provider] - 08/29/18 2:30 pm Disposition: HOME - Home Medications Comprehensive Discharge Medication List: Ambulatory Orders Simvastatin [Zocor] 20 mg PO HS 10/08/12 Insulin Lispro [Humalog] 0 unit SQ PRN PRN 02/22/17 Tamsulosin HCl [Flomax] 0.4 mg PO HS 02/22/17 Finasteride 5 mg PO DAILY 08/17/18 Glipizide/Metformin HCl [Glipizide-Metformin 5-500 mg] 1 each PO BID 08/17/18 Losartan Potassium 50 mg PO DAILY 08/17/18 Levofloxacin 750 mg PO DAILY #10 tablet 08/21/18 This patient is new to me today: No Emergency Visit: Yes ED Registration Date: 08/17/18 Care time: The patient presented to the Emergency Department on the above date and was hospitalized for further evaluation of their emergent condition. Critical Care patient: No - Discharge Referral Referred to [facility] No
== END 2018-08-21 13:47 | disposition home or self-care (01) | DRG 871 ==
LOC: FER 10:50 → FM/S 12:37
PROVIDERS: ATTEND Nurse Practitioner Acute Care
DX: A41.9 Sepsis, unspecified organism (principal); J18.9 Pneumonia, unspecified organism; E87.2 Acidosis; R65.20 Severe sepsis without septic shock; I10 Essential (primary) hypertension; Z79.4 Long term (current) use of insulin; N40.0 Benign prostatic hyperplasia without lower urinary tract symptoms; E11.65 Type 2 diabetes mellitus with hyperglycemia; E78.5 Hyperlipidemia, unspecified; Z96.651 Presence of right artificial knee joint; M79.10 Myalgia, unspecified site
CPT/HCPCS: 36415; 71046-TC-FY; 71250-TC; 80053; 81003; 81015; 82962; 83605; 83735; 85025; 86480; 87040; 87070; 87086; 87205; 87804; 87899; 93005; 97116-GP; 97161-GP; 99285-25; J7030

== ENCOUNTER 2021-02-15 17:38 | Emergency (ER) | payer OTHER ==
[2021-02-15 18:06] VITALS: BP 138/75; PULSE 94; TEMP 98.1; BMI 29.8
[2021-02-15 20:24] LABS: BASO % 0.5 % (0-2.0); EOS % 1.7 % (0-4.5); HEMATOCRIT 42.2 % (35.4-49); HEMOGLOBIN 14.4 GM/dL (11.7-16.9); LYMPH % 34.7 % (8-40); MCH 30.8 pg (25.7-33.7); MCHC 34.1 g/dl (32.0-35.9); MEAN CELL VOLUME 90.5 fl (80-96); MEAN PLT VOLUME 7.6 fl (7.5-11.1); MONO % 8.9 % (3.8-10.2); NEUT % 54.2 % (42.8-82.8); PLATELET COUNT 248 10^3/uL (134-434); RBC 4.67 M/mm3 (4.00-5.60); RDW 14.1 % (11.9-15.9); WHITE BLOOD COUNT 6.1 K/mm3 (4.0-10.0)
[2021-02-15 20:46] LABS: CALCIUM 8.8 mg/dL (8.5-10.1)
[2021-02-15 20:48] LABS: ALBUMIN 3.9 g/dl (3.4-5.0); BLOOD UREA NITROGEN 23.4 mg/dL (7-18)
[2021-02-15 20:52] LABS: BILIRUBIN,TOTAL 0.4 mg/dL (0.2-1); TOT PROT 7.6 g/dl (6.4-8.2)
[2021-02-15 21:14] LABS: ERYTHROCYTE SEDIMENTATION RATE 6 mm/hr (0-20)
[2021-02-15] MEDS ORDERED: SULFAMETHOXAZOLE/TRIMETHOPRIM 800MG/160MG D.S. TABLET PO ONE (21:16)
[2021-02-15] MEDS ORDERED: CEPHALEXIN MONOHYDRATE 500 MG CAPSULE (UD) PO ONE (21:16)
[2021-02-15] MEDS ORDERED: CEPHALEXIN MONOHYDRATE 250 MG CAPSULE (FP) ONE (21:27)
[2021-02-15] MEDS ORDERED: SULFAMETHOXAZOLE/TRIMETHOPRIM 800MG/160MG D.S. TABLET ONE (21:27)
== END 2021-02-15 21:41 | disposition home or self-care (01) ==
LOC: JER 17:38
PROC: 0H9KXZZ Drainage of Right Lower Leg Skin, External Approach (ICD-10-PCS; principal; 2021-02-15)
DX: L02.415 Cutaneous abscess of right lower limb (principal)
CPT/HCPCS: 36415; 73590-TC-RT-FY; 73610-TC-RT-FY; 73630-TC-RT-FY; 80053; 82962; 83605; 85025; 85651; 86140; 99284-25

== ENCOUNTER 2023-10-23 13:24 | Emergency (ER) | payer OTHER ==
[2023-10-23 13:38] VITALS: BP 114/75; PULSE 96; RESP 18; TEMP 98.7; BMI 29.3
[2023-10-23] MEDS: SODIUM CHLORIDE 0.9% 500 ML INFUS.BAG IV ONE (14:00)
[2023-10-23] MEDS ORDERED: ACETAMINOPHEN INJECTION 100 ML IVPB ONE (14:05)
[2023-10-23] MEDS ORDERED: SIMETHICONE 80 MG TAB.CHEW (FP) ONE (14:06)
[2023-10-23] MEDS: ACETAMINOPHEN 1000 MG/100 ML BAG IVPB ONE (14:08)
[2023-10-23] MEDS: SIMETHICONE 80 MG TAB.CHEW (FP) PO ONE (14:08)
[2023-10-23 14:15] LABS: HEMATOCRIT 44.8 % (35.4-49); HEMOGLOBIN 14.9 G/dL (11.7-16.9); MCH 30.5 pg (25.7-33.7); MCHC 33.2 g/dl (32.0-35.9); MEAN CELL VOLUME 91.9 fl (80-96); MEAN PLT VOLUME 7.8 fl (7.5-11.1); PLATELET COUNT 238.9 10^3/uL (134-434); RBC 4.87 10^6/uL (4.00-5.60); RDW 14.5 % (11.9-15.9); WHITE BLOOD COUNT 3.2 10^3/uL (4.0-10.8)
[2023-10-23 14:22] LABS: INR 1.03 (0.83-1.09); PROTHROMBIN TIME (PATIENT) 11.9 SEC (9.7-13.0)
[2023-10-23 14:24] LABS: ACTIVATED PTT 28.7 SECONDS (25.2-36.5)
[2023-10-23 14:32] LABS: ALBUMIN 4.2 g/dl (3.4-5.0); BILIRUBIN,TOTAL 0.6 mg/dl (0.2-1); MAGNESIUM 1.8 mg/dL (1.8-2.4); TOT PROT 7.3 g/dl (6.4-8.2)
[2023-10-23 14:44] LABS: PLATELET ESTIMATE ADEQUATE
[2023-10-23] MEDS ORDERED: AZITHROMYCIN 500 MG TABLET ONE (19:05)
[2023-10-23] MEDS: AZITHROMYCIN 250 MG TABLET PO ONE (19:06)
== END 2023-10-23 19:07 | disposition home or self-care (01) ==
LOC: FER 13:24
PROC: 3E030NZ Introduction of Analgesics, Hypnotics, Sedatives into Peripheral Vein, Open Approach (ICD-10-PCS; principal; 2023-10-23)
DX: R10.817 Generalized abdominal tenderness (principal); R14.0 Abdominal distension (gaseous); M79.89 Other specified soft tissue disorders; K52.9 Noninfective gastroenteritis and colitis, unspecified
CPT/HCPCS: 36415; 74176-TC; 80053; 83735; 85027; 85610; 85730; 93971-TC; 96374; 99284-25; J0131

== ENCOUNTER 2024-03-27 14:18 | Emergency (ER) | payer OTHER ==
[2024-03-27 14:54] VITALS: BP 132/79; PULSE 84; RESP 16; TEMP 98.1; BMI 30.7
[2024-03-27 15:50] LABS: HEMATOCRIT 41.8 % (35.4-49); HEMOGLOBIN 13.5 G/dL (11.7-16.9); MCH 30.3 pg (25.7-33.7); MCHC 32.2 g/dl (32.0-35.9); MEAN PLT VOLUME 8.2 fl (7.5-11.1); PLATELET COUNT 233.3 10^3/uL (134-434); RBC 4.45 10^6/uL (4.00-5.60); RDW 13.6 % (11.9-15.9); WHITE BLOOD COUNT 5.5 10^3/uL (4.0-10.8)
[2024-03-27 16:15] LABS: ALBUMIN 4.3 g/dl (3.4-5.0); ALK PHOS 72 U/L (45-117); ANION GAP 7 mmol/L (4-13); BILIRUBIN,TOTAL 0.4 mg/dl (0.2-1); CALCIUM 9.4 mg/dl (8.5-10.1); CHLORIDE 102 mmol/L (98-107); CO2 27 mmol/L (21-32); CREATININE 0.9 mg/dl (0.6-1.3); GLUCOSE,RANDOM 192 mg/dl (74-106); POTASSIUM 4.6 mmol/L (3.5-5.1); SGOT/AST 15 U/L (15-37); SGPT/ALT 15 U/L (7-52); SODIUM 136 mmol/L (136-145); TOT PROT 7.4 g/dl (6.4-8.2)
[2024-03-27 16:28] LABS: PLATELET ESTIMATE ADEQUATE
[2024-03-27] MEDS: ACETAMINOPHEN 500 MG TABLET (FP) PO ONE (16:38)
[2024-03-27] MEDS ORDERED: ACETAMINOPHEN 325 MG TABLET (FP) ONE (16:38)
[2024-03-27 17:06] LABS: ERYTHROCYTE SEDIMENTATION RATE 7 mm/hr (0-20)
== END 2024-03-27 18:05 | disposition home or self-care (01) ==
LOC: FER 14:18
DX: R51.9 Headache, unspecified (principal); H53.8 Other visual disturbances; R20.0 Anesthesia of skin
CPT/HCPCS: 36415; 70450-TC; 80053; 85027; 85651; 86140; 99284-25

== ENCOUNTER 2024-12-11 14:52 | Emergency (ER) | payer OTHER ==
[2024-12-11] MEDS ORDERED: ACETAMINOPHEN 325 MG TABLET (FP) ONE (15:15)
[2024-12-11] MEDS ORDERED: LIDOCAINE 5% TOPICAL PATCH ONE (15:15)
[2024-12-11 15:18] VITALS: BP 145/79; PULSE 85; RESP 18; TEMP 98.2; BMI 29.7
[2024-12-11] MEDS: ACETAMINOPHEN 325 MG TABLET (FP) PO ONE (15:18)
[2024-12-11] MEDS: LIDOCAINE 5% TOPICAL PATCH TP ONE (15:45)
[2024-12-11] MEDS ORDERED: LIDOCAINE PATCH REMOVAL MC SCH (22:00)
== END 2024-12-11 17:20 | disposition home or self-care (01) ==
LOC: FER 14:52
DX: M54.50 Low back pain, unspecified (principal); K59.01 Slow transit constipation; W11.XXXA Fall on and from ladder, initial encounter
CPT/HCPCS: 72100-TC-FY; 74019-TC-FY; 99284-25

== ENCOUNTER 2025-05-26 18:51 | Emergency (ER) | payer OTHER ==
[2025-05-26 19:29] VITALS: BP 134/79; PULSE 78; RESP 17; TEMP 98.2; BMI 28.7
[2025-05-26 20:27] LABS: ABSOLUTE IMMATURE GRANULOCYTES 0.01 x10^3/uL (0.0-0.031); BASOPHILS # 0.01 x10^3/uL (0.01-0.08); EOSINOPHIL % 1.7 % (0.8-7.0); EOSINOPHILS # 0.11 x10^3/uL (0.04-0.54); MCHC 33.9 g/dl (32.3-36.5); MEAN CELL VOLUME 93.2 fl (79.0-92.2); MEAN PLT VOLUME 9.7 fl (9.4-12.4); MONOCYTE # 0.53 x10^3/uL (0.30-0.82); MONOCYTE % 8.2 % (5.3-12.2); RDW 13.2 % (12.2-16.6)
[2025-05-26] MEDS: SODIUM CHLORIDE 1,000 ML IV SCH (20:32)
[2025-05-26 20:34] LABS: INR 0.94 (0.83-1.09); PROTHROMBIN TIME (PATIENT) 10.4 SEC (9.7-13.0)
[2025-05-26 20:37] LABS: ACTIVATED PTT 31.6 SECONDS (25.2-36.5)
[2025-05-26 20:43] LABS: ALK PHOS 83.0 U/L (45-117); CO2 27.0 mmol/L (21-32); CREATININE 0.8 mg/dl (0.6-1.3); GLUCOSE,RANDOM 147.0 mg/dl (74-106); SGOT/AST 15.0 U/L (15-37); SGPT/ALT 17.0 U/L (7-52); TOT PROT 7.1 g/dl (6.4-8.2)
[2025-05-26 20:45] LABS: LDL CHOLESTEROL (ONLY SJRH) 81.0 mg/dL (5-100)
== END 2025-05-26 22:48 | disposition home or self-care (01) ==
LOC: FER 18:51
DX: R51.9 Headache, unspecified (principal); R42 Dizziness and giddiness
CPT/HCPCS: 36415; 70450-TC; 70496-TC; 70498-TC; 71045-TC-FY; 80053; 80061; 81003; 83036; 83880; 84484; 85025; 85610; 85730; 86850; 86900; 86901; 93005; 99285-25